=== PATIENT | male | born 1970 | race African-American/Black ===

== ENCOUNTER 2018-11-19 10:24 | Emergency (ER) | payer OTHER ==
[2018-11-19] MEDS ORDERED: TRAMADOL HCL 50 MG TAB ONE (13:04)
[2018-11-19] MEDS ORDERED: DIAZEPAM 5 MG TABLET ONE (13:04)
[2018-11-19] MEDS ORDERED: FENTANYL CITR 100 MCG/2 ML ONE (14:20)
--- NOTE | 2018-11-19 14:54 | EDPHYS ---
Physician Documentation [facility] Name: Ashok Galan Jr Age: 48 yrs Sex: Male : 1970 Arrival Date: 11/19/2018 Time: 10:29 Bed Treatment Private MD: Arben Ro H ED Physician Tino Aguila HPI: 11/19 14:15 This 48 yrs old Black Male presents to ER via EMS with complaints of Hip Pain, Leg Pain.snw 14:15 The patient or guardian reports decreased range of motion, pain. that occurred at home, snw sustained from unknown reason, The patient is able to ambulate with assistance. The patient is able to bear partial body weight. The patient's discomfort radiates to the right leg, right hip. The complaints affect the right hip, lateral aspect of right thigh and right quadriceps. Onset: The symptoms/episode began/occurred suddenly, 3 day(s) ago, and became persistent. Associated signs and symptoms: Loss of consciousness: the patient experienced no loss of consciousness. Severity of symptoms: At their worst the symptoms were moderate, severe. The patient has not experienced similar symptoms in the past. It is unknown whether or not the patient has recently seen a physician. taking flexeril without relief. Historical: - Allergies: 11:45 No Known Allergies; iw - Home Meds: 10:33 Omeprazole Oral [Active]; Lisinopril Oral [Active]; Cyclobenzaprine Oral [Active]; tw2 - PMHx: 10:33 GI ulcers; Hypertension; tw2 - PSHx: 10:33 colonoscopy; tw2 - Immunization history:: Adult Immunizations unknown. - Social history:: Smoking status: Patient uses tobacco products, smokes one-half pack cigarettes per day. - Ebola Screening: : Patient denies travel to an Ebola-affected area in the 21 days before illness onset. ROS: 14:14 Constitutional: Negative for fever, chills, and weight loss, Eyes: Negative for injury, snw pain, redness, and discharge, ENT: Negative for injury, pain, and discharge, Neck: Negative for injury, pain, and swelling, Cardiovascular: Negative for chest pain, palpitations, and edema, Respiratory: Negative for shortness of breath, cough, wheezing, and pleuritic chest pain, Abdomen/GI: Negative for abdominal pain, nausea, vomiting, diarrhea, and constipation, : Negative for injury, bleeding, discharge, and swelling, MS/Extremity: Negative for injury and deformity, Skin: Negative for injury, rash, and discoloration, Neuro: Negative for headache, weakness, numbness, tingling, and seizure. 14:14 Back: Positive for decreased range of motion, pain at rest, pain with movement, radiated pain, of the low back area, right hip, and right thigh. Exam: 13:03 Constitutional: This is a well developed, well nourished patient who is awake, alert, snw and in no acute distress. Head/Face: Normocephalic, atraumatic. Eyes: Pupils equal round and reactive to light, extra-ocular motions intact. Lids and lashes normal. Conjunctiva and sclera are non-icteric and not injected. Cornea within normal limits. Periorbital areas with no swelling, redness, or edema. ENT: Nares patent. No nasal discharge, no septal abnormalities noted. Tympanic membranes are normal and external auditory canals are clear. Oropharynx with no redness, swelling, or masses, exudates, or evidence of obstruction, uvula midline. Mucous membranes moist. Neck: Trachea midline, no thyromegaly or masses palpated, and no cervical lymphadenopathy. Supple, full range of motion without nuchal rigidity, or vertebral point tenderness. No Meningismus. Chest/axilla: Normal chest wall appearance and motion. Nontender with no deformity. No lesions are appreciated. Cardiovascular: Regular rate and rhythm with a normal S1 and S2. No gallops, murmurs, or rubs. Normal PMI, no JVD. No pulse deficits. Respiratory: Lungs have equal breath sounds bilaterally, clear to auscultation and percussion. No rales, rhonchi or wheezes noted. No increased work of breathing, no retractions or nasal flaring. Abdomen/GI: Soft, non-tender, with normal bowel sounds. No distension or tympany. No guarding or rebound. No evidence of tenderness throughout. Skin: Warm, dry with normal turgor. Normal color with no rashes, no lesions, and no evidence of cellulitis. MS/ Extremity: Pulses equal, no cyanosis. Neurovascular intact. Full, normal range of motion. Neuro: Awake and alert, GCS 15, oriented to person, place, time, and situation. Cranial nerves II-XII grossly intact. Motor strength 5/5 in all extremities. Sensory grossly intact. Cerebellar exam normal. Normal gait. Psych: Awake, alert, with orientation to person, place and time. Behavior, mood, and affect are within normal limits. 13:03 Back: pain, that is moderate, of the low back area, ROM is painful, CVA tenderness, is absent, muscle spasm, is appreciated in the right anterior thigh, holding himself up off right hip/back. Vital Signs: 10:36 BP 160 / 76; Pulse 60; Resp 17; Temp 97.8(O); Pulse Ox 95% on R/A; Weight 136.08 kg tw2 (R); Height 6 ft. 8 in. (203.20 cm); Pain 04/21; 10:36 Body Mass Index 32.96 (136.08 kg, 203.20 cm) tw2 10:36 "20, i can hardly sit up but i can stand on it" tw2 MDM: 12:23 Patient medically screened. snw 14:56 Data reviewed: vital signs, nurses notes. Data interpreted: Pulse oximetry: on room air snw is 95 %. Interpretation: acceptable. Counseling: I had a detailed discussion with the patient and/or guardian regarding: the historical points, exam findings, and any diagnostic results supporting the discharge/admit diagnosis, the presence of at least one elevated blood pressure reading (>120/80) during this emergency department visit, radiology results, the need for outpatient follow up, to return to the emergency department if symptoms worsen or persist or if there are any questions or concerns that arise at home, smoking cessation. Special discussion: Based on the patient's Hx, exam, and Dx evaluation, there is no indication for emergent surgery or inpatient Tx. It is understood by the patient/guardian that if the Sx's persist or worsen they need to return immediately for re-evaluation. I have referred the patient to see his PCP for further evaluation of high blood pressure. Based on the history and exam findings, there is no indication for further emergent testing or inpatient evaluation. I discussed with the patient/guardian the need to see the primary care provider for further evaluation of the symptoms. 11/19 12:30 Order name: Lumbar Spine (3 Views) XRAY; Complete Time: 15:03 snw 11/19 14:34 Order name: Urine Dipstick-Ancillary (obtain specimen); Complete Time: 15:11 snw Administered Medications: 12:53 Drug: traMADol 50 mg Route: PO; iw 12:53 Drug: Valium 5 mg Route: PO; iw 14:11 Drug: fentaNYL (PF) 50 mcg Route: IM; Site: right deltoid; iw Disposition: 11/19/18 14:53 Discharged to Home. Impression: Radiculopathy, lumbar region, Low back pain, Constipation. - Condition is Stable. - Discharge Instructions: Abdominal Pain, Adult, Back Pain, Adult, Lumbosacral Radiculopathy, Musculoskeletal Pain, Steps to Quit Smoking, Back Injury Prevention, [id number], Back Exercises, Dfhl-[id number], Cryotherapy, Rehydration, Adult, Heat Therapy. - Prescriptions for Tylenol- Codeine #3 300-30 mg Oral Tablet - take 2 tablet by ORAL route every 6 hours As needed; 30 tablet. orphenadrine citrate 100 mg Oral Tablet Sustained Release - take 1 tablet by ORAL route 2 times per day As needed; 20 tablet. Miralax 17 gram/dose Oral - take 1 packet by ORAL route once daily dilute powder in 8 ounces of water or juice; 1 box. - Work release form, Medication Reconciliation Form, Thank You Letter, Antibiotic Education, Prescription Opioid Use, Family Work Release form. - Follow up: Arben Ro DO; When: 2 - 3 days; Reason: Recheck today's complaints, Continuance of care, Re-evaluation by your physician. Follow up: Emergency Department; When: As needed; Reason: Worsening of condition. - Notes: If abdominal pain, fever, or worsening symptoms, please return to ED immediately Addendum: 11/20/2018 19:28 Co-signature as Attending Physician, Tino Aguila MD I agree with the assessment and k dr plan of care. Signatures: Dispatcher [employer] EDMS Tino Aguila MD MD [facility] Gabby Meredith, LUMBER HACKER-C LUMBER HACKER-Csnw Ketty Waite RN RN iw Cindy Guerra RN RN tw2 Corrections: (The following items were deleted from the chart) 11/19 16:04 14:53 11/19/2018 14:53 Discharged to Home. Impression: Radiculopathy, lumbar region; iw Low back pain; Constipation. Condition is Stable. Forms are Medication Reconciliation Form, Thank You Letter, Antibiotic Education, Prescription Opioid Use. Follow up: Arben Ro; When: 2 - 3 days; Reason: Recheck today's complaints, Continuance of care, Re-evaluation by your physician. Follow up: Emergency Department; When: As needed; Reason: Worsening of condition. snw
--- NOTE | 2018-11-19 14:54 | ER ---
Nurse's Notes [facility] Name: Ashok Galan Jr Age: 48 yrs Sex: Male : 1970 Arrival Date: 11/19/2018 Time: 10:29 Bed Treatment Private MD: Arben Ro H Diagnosis: Radiculopathy, lumbar region;Low back pain;Constipation Presentation: 11/19 10:30 Presenting complaint: EMS states: pt c/o RIGHT hip pain that radiates to RIGHT knee, tw2 onset was Thursday, states it just has gotten worse,c/o pain 01/05, vs stable, 167/76, hx; htn, stomach ulcers. Transition of care: patient was not received from another setting of care. Onset of symptoms was November 19, 2018. Risk Assessment: Do you want to hurt yourself or someone else? Patient reports no desire to harm self or others. Initial Sepsis Screen: Does the patient meet any 2 criteria? No. Patient's initial sepsis screen is negative. Does the patient have a suspected source of infection? No. Patient's initial sepsis screen is negative. Care prior to arrival: None. 10:30 Method Of Arrival: EMS: [facility] tw2 10:30 Acuity: JENNIFER 4 tw2 Triage Assessment: 10:34 General: Appears in no apparent distress. unkempt, Behavior is calm, cooperative, tw2 appropriate for age. Pain: Complains of pain in Right hip or Right lower back. Musculoskeletal: Circulation, motion, and sensation intact. Range of motion: intact in all extremities, "i can walk a little bit". Historical: - Allergies: 11:45 No Known Allergies; iw - Home Meds: 10:33 Omeprazole Oral [Active]; Lisinopril Oral [Active]; Cyclobenzaprine Oral [Active]; tw2 - PMHx: 10:33 GI ulcers; Hypertension; tw2 - PSHx: 10:33 colonoscopy; tw2 - Immunization history:: Adult Immunizations unknown. - Social history:: Smoking status: Patient uses tobacco products, smokes one-half pack cigarettes per day. - Ebola Screening: : Patient denies travel to an Ebola-affected area in the 21 days before illness onset. Screenin:38 Abuse screen: Denies threats or abuse. Nutritional screening: No deficits noted. tw2 Tuberculosis screening: No symptoms or risk factors identified. Fall Risk None identified. Assessment: 11:44 General: Appears in no apparent distress. Behavior is calm, cooperative. Pain: iw Complains of pain in right lower back Pain radiates to right leg. Neuro: Level of Consciousness is awake, alert, obeys commands, Moves all extremities. Cardiovascular: Patient's skin is warm and dry. Respiratory: Respiratory effort is even, unlabored, Respiratory pattern is regular. Derm: Skin is intact, is healthy with good turgor. Musculoskeletal: Range of motion: intact in all extremities, Reports pain in right lower back. Vital Signs: 10:36 BP 160 / 76; Pulse 60; Resp 17; Temp 97.8(O); Pulse Ox 95% on R/A; Weight 136.08 kg tw2 (R); Height 6 ft. 8 in. (203.20 cm); Pain 10/10; 10:36 Body Mass Index 32.96 (136.08 kg, 203.20 cm) tw2 10:36 "20, i can hardly sit up but i can stand on it" tw2 ED Course: 10:29 Patient arrived in ED. mr 10:29 Arben Ro DO is Private Physician. mr 10:31 Triage completed. tw2 10:31 Arm band placed on. tw2 11:37 Ketty Waite, RN is Primary Nurse. iw 11:38 Bed in low position. Call light in reach. Pulse ox on. NIBP on. tw2 12:23 Gabby Meredith [facility]-C [facility]. snw 12:23 Tino Aguila MD is Attending Physician. snw 14:01 Radiology exam delayed due to PT NEEDING MORE PAIN MEDICATION BEFORE XRAYS AT 14:00. mh1 14:41 X-ray completed. Patient tolerated procedure poorly. Patient moved back from radiology. mh1 14:45 Lumbar Spine (3 Views) XRAY In Process Unspecified. EDMS 14:52 Arben Ro DO is Referral Physician. snw 16:03 No provider procedures requiring assistance completed. Patient did not have IV access iw during this emergency room visit. Administered Medications: 12:53 Drug: traMADol 50 mg Route: PO; iw 12:53 Drug: Valium 5 mg Route: PO; iw 14:11 Drug: fentaNYL (PF) 50 mcg Route: IM; Site: right deltoid; iw Outcome: 14:53 Discharge ordered by MD. saba 16:03 Discharged to home via wheelchair, with family. iw 16:03 Condition: good 16:03 Discharge instructions given to patient, family, Instructed on discharge instructions, follow up and referral plans. medication usage, Demonstrated understanding of instructions, follow-up care, medications, Prescriptions given X 2. 16:04 Patient left the ED. iw Signatures: Dispatcher [employer] EDMS Gabby Meredith, HOT BILLET SHEAR OPERATOR-C HOT BILLET SHEAR OPERATOR-Csnw AdamsRosalva mr HeckSharonda 1 Ketty Waite, RN RN iw Cindy Guerra RN RN tw2
--- NOTE | 2018-11-19 15:02 | RAD REPORT ---
EXAM DESCRIPTION: RAD - Lumbar Spine 3 Views - 11/19/2018 2:45 pm CLINICAL HISTORY: Back pain, right lower extremity radiculopathy COMPARISON: None. FINDINGS: A three-view lumbar spine examination was performed. Lumbar bodies are normal in height. N o AP alignment abnormality. The left lateral tilting of the lumbar spine is believed to be a position ing artifact. Due to pain symptoms, patient had difficulty remaining still for the examination. No fr acture or acute bony process seen. No disc space narrowing. No pars defects identified. IMPRESSION: Lumbar spine examination shows no significant or suspicious finding.
== END 2018-11-19 16:04 | disposition home or self-care (01) ==
LOC: ER 10:24
DX: M54.16 Radiculopathy, lumbar region (principal); I10 Essential (primary) hypertension; F17.210 Nicotine dependence, cigarettes, uncomplicated
CPT/HCPCS: 72100; 96372; 99284; J3010

== ENCOUNTER 2019-08-22 03:07 | Emergency (ER) | payer OTHER ==
[2019-08-22] MEDS ORDERED: ONDANSETRON 4 MG/2 ML VIAL ONE (03:29)
[2019-08-22] MEDS ORDERED: NA CHLORIDE 0.9% 1,000 ML ONE (03:29)
[2019-08-22 04:04] LABS: Absolute Lymphocytes (CBC) 4.1 K/uL (0.7-4.9); Basophils % 0.6 % (0-1.3); Hematocrit 38.1 % (39.6-49.0); Lymphocytes % 46.2 % (15.3-44.8); MPV 9.6 fL (7.6-11.3); RBC Red Blood Cell Count 6.51 M/uL (4.33-5.43)
[2019-08-22 04:06] LABS: Protime INR 0.96
[2019-08-22 04:19] LABS: Albumin 3.4 g/dL (3.4-5.0); Bilirubin Direct 0.1 mg/dL (0-0.2); Bilirubin Total 0.4 mg/dL (0.2-1.0); Potassium 3.8 mmol/L (3.5-5.1); Protein, Total 6.8 g/dL (6.4-8.2)
--- NOTE | 2019-08-22 04:45 | ER ---
Nurse's Notes [facility] Name: Ashok Glaan Jr Age: 49 yrs Sex: Male : 1970 Arrival Date: 08/22/2019 Time: 03:08 Bed 5 Private MD: Diagnosis: Blister (nonthermal) of oral cavity;Abrasion of oral cavity Presentation: 08/22 03:15 Presenting complaint: EMS states: they were called out for report of pt waking up bb approx 0230 with dried blood in his mouth pt denies any other symptoms. Transition of care: patient was not received from another setting of care. Onset of symptoms was August 22, 2019. Risk Assessment: Do you want to hurt yourself or someone else? Patient reports no desire to harm self or others. Initial Sepsis Screen: Does the patient meet any 2 criteria? No. Patient's initial sepsis screen is negative. Does the patient have a suspected source of infection? No. Patient's initial sepsis screen is negative. Care prior to arrival: None. 03:15 Method Of Arrival: EMS: [facility] bb 03:15 Acuity: JENNIFER 4 bb Historical: - Allergies: 03:18 No Known Allergies; bb - Home Meds: 03:18 lisinopril Oral [Active]; Omeprazole Oral [Active]; bb - PMHx: 03:18 GI ulcers; Hypertension; bb - Immunization history:: Adult Immunizations up to date, Flu vaccine is not up to date. - Coronavirus screen:: The patient has NOT traveled to [place], [place], or [place] in the past 14 days. Proceed with normal triage process as indicated. - Social history:: Smoking status: Patient reports the use of cigarette tobacco products, smokes one-half pack cigarettes per day. - Ebola Screening: : No symptoms or risks identified at this time. Screenin:11 Abuse screen: Denies threats or abuse. Nutritional screening: No deficits noted. jd3 Tuberculosis screening: No symptoms or risk factors identified. Fall Risk Ambulatory Aid- None/Bed Rest/Nurse Assist (0 pts). Gait- Normal/Bed Rest/Wheelchair (0 pts) Mental Status- Oriented to own ability (0 pts). Total Duckworth Fall Scale indicates No Risk (0-24 pts). Assessment: 03:09 General: Appears in no apparent distress. uncomfortable, Behavior is calm, cooperative, jd3 appropriate for age. Pain: Denies pain. Neuro: Level of Consciousness is awake, alert, obeys commands, Oriented to person, place, time, situation. Cardiovascular: Denies chest pain, Capillary refill < 3 seconds Patient's skin is warm and dry. Respiratory: Airway is patent Respiratory effort is even, unlabored, Respiratory pattern is regular, symmetrical, Denies cough, shortness of breath. GI: Abdomen is round non-distended, Bowel sounds present X 4 quads. Abd is soft and non tender X 4 quads. Reports nausea, blood in mouth upon waking up. Patient currently denies abdominal pain, diarrhea, vomiting. : No signs and/or symptoms were reported regarding the genitourinary system. EENT: No signs and/or symptoms were reported regarding the EENT system. Derm: Skin is intact, Skin is dry, Skin is normal, Skin temperature is warm. Musculoskeletal: Circulation, motion, and sensation intact. Range of motion: intact in all extremities. 04:34 Reassessment: Patient appears in no apparent distress at this time. Patient and/or jd3 family updated on plan of care and expected duration. Pain level reassessed. Patient is alert, oriented x 3, equal unlabored respirations, skin warm/dry/pink. Patient denies pain at this time. 05:02 Reassessment: Patient appears in no apparent distress at this time. Patient and/or jd3 family updated on plan of care and expected duration. Pain level reassessed. Patient is alert, oriented x 3, equal unlabored respirations, skin warm/dry/pink. pt reported understanding of discharge instructions, even and steady gait upon discharge. Patient denies pain at this time. Vital Signs: 03:18 BP 146 / 89; Pulse 92; Resp 14 S; Temp 98.6(O); Pulse Ox 96% on R/A; Weight 131.54 kg bb (R); Height 6 ft. 8 in. (203.20 cm) (R); Pain 0/10; 04:33 BP 132 / 88; Pulse 87; Resp 18 S; Pulse Ox 100% on R/A; jd3 03:18 Body Mass Index 31.86 (131.54 kg, 203.20 cm) bb ED Course: 03:08 Patient arrived in ED. ds1 03:09 Rogers, Jonathan, RN is Primary Nurse. jd3 03:11 Patient has correct armband on for positive identification. Placed in gown. Bed in low jd3 position. Call light in reach. Side rails up X2. 03:11 Arm band placed on. jd3 03:14 El Monk MD is Attending Physician. tw4 03:17 Triage completed. bb 03:36 Inserted saline lock: 20 gauge in right antecubital area, using aseptic technique. jd3 Blood collected. placed by [facility]. 05:02 No provider procedures requiring assistance completed. IV discontinued, intact, jd3 bleeding controlled, No redness/swelling at site. Pressure dressing applied. Administered Medications: 03:36 Drug: NS 0.9% 1000 ml Route: IV; Rate: 1 bolus; Site: right antecubital; jd3 05:04 Follow up: Response: No adverse reaction; IV Status: Completed infusion; IV Intake: jd3 1000ml 03:36 Drug: Zofran 4 mg Route: IVP; Site: right antecubital; jd3 05:04 Follow up: Response: No adverse reaction jd3 Intake: 05:04 IV: 1000ml; Total: 1000ml. jd3 Outcome: 04:45 Discharge ordered by . tw4 05:02 Discharged to home ambulatory, with family. jd3 05:02 Condition: stable 05:02 Discharge instructions given to patient, Instructed on discharge instructions, follow up and referral plans. Demonstrated understanding of instructions, follow-up care. 05:05 Patient left the ED. jd3 Signatures: Ciara Owen ds1 Ethel An RN RN bb Davies, Jonathon, RN RN jd3 Wadley, Terrence, MD MD tw4 Corrections: (The following items were deleted from the chart) 05:05 05:02 Reassessment: Patient appears in no apparent distress at this time. Patient jd3 and/or family updated on plan of care and expected duration. Pain level reassessed. Patient is alert, oriented x 3, equal unlabored respirations, skin warm/dry/pink. Patient denies pain at this time. jd3
--- NOTE | 2019-08-22 04:45 | EDPHYS ---
Physician Documentation [facility] Name: Ashok Galan Jr Age: 49 yrs Sex: Male : 1970 Arrival Date: 08/22/2019 Time: 03:08 Bed 5 Private MD: ED Physician El Monk HPI: 08/22 05:52 This 49 yrs old Black Male presents to ER via EMS with complaints of Blood in Vomit. tw4 05:52 This 49 yrs old Black Male presents to ER via EMS with complaints of BLLOD BLISTER IN tw4 MOUTH BLEEDING. 05:52 The patient presents with bleeding. The problem is located in the left buccal mucosa. tw4 Onset: The symptoms/episode began/occurred just prior to arrival. Duration: The symptoms are intermittent, with no pattern. Modifying factors: The symptoms are alleviated by nothing, the symptoms are aggravated by nothing. Associated signs and symptoms: The patient has no apparent associated signs or symptoms. Severity of symptoms: At their worst the symptoms were moderate, in the emergency department the symptoms are unchanged. The patient has not experienced similar symptoms in the past. Historical: - Allergies: 03:18 No Known Allergies; bb - Home Meds: 03:18 lisinopril Oral [Active]; Omeprazole Oral [Active]; bb - PMHx: 03:18 GI ulcers; Hypertension; bb - Immunization history:: Adult Immunizations up to date, Flu vaccine is not up to date. - Coronavirus screen:: The patient has NOT traveled to [place], [place], or [place] in the past 14 days. Proceed with normal triage process as indicated. - Social history:: Smoking status: Patient reports the use of cigarette tobacco products, smokes one-half pack cigarettes per day. - Ebola Screening: : No symptoms or risks identified at this time. ROS: 05:52 Constitutional: Negative for fever, chills, and weight loss, Eyes: Negative for injury, tw4 pain, redness, and discharge, Cardiovascular: Negative for chest pain, palpitations, and edema, Respiratory: Negative for shortness of breath, cough, wheezing, and pleuritic chest pain, Abdomen/GI: Negative for abdominal pain, nausea, vomiting, diarrhea, and constipation, Back: Negative for injury and pain, MS/Extremity: Negative for injury and deformity, Skin: Negative for injury, rash, and discoloration, Neuro: Negative for headache, weakness, numbness, tingling, and seizure. 05:52 ENT: Positive for BLEEDING FROM ORAL MUCOSA. Exam: 05:52 Constitutional: This is a well developed, well nourished patient who is awake, alert, tw4 and in no acute distress. Head/Face: Normocephalic, atraumatic. Eyes: Pupils equal round and reactive to light, extra-ocular motions intact. Lids and lashes normal. Conjunctiva and sclera are non-icteric and not injected. Cornea within normal limits. Periorbital areas with no swelling, redness, or edema. 05:52 Cardiovascular: Regular rate and rhythm with a normal S1 and S2. No gallops, murmurs, or rubs. Normal PMI, no JVD. No pulse deficits. Respiratory: Lungs have equal breath sounds bilaterally, clear to auscultation and percussion. No rales, rhonchi or wheezes noted. No increased work of breathing, no retractions or nasal flaring. Abdomen/GI: Soft, non-tender, with normal bowel sounds. No distension or tympany. No guarding or rebound. No evidence of tenderness throughout. Back: No spinal tenderness. No costovertebral tenderness. Full range of motion. MS/ Extremity: Pulses equal, no cyanosis. Neurovascular intact. Full, normal range of motion. Neuro: Awake and alert, GCS 15, oriented to person, place, time, and situation. Cranial nerves II-XII grossly intact. Motor strength 5/5 in all extremities. Sensory grossly intact. Cerebellar exam normal. Normal gait. 05:52 ENT: Mouth: Oral mucosa: on the left buccal mucosa, ABRASION NOT ACTIVELY BLEEDING. Vital Signs: 03:18 BP 146 / 89; Pulse 92; Resp 14 S; Temp 98.6(O); Pulse Ox 96% on R/A; Weight 131.54 kg bb (R); Height 6 ft. 8 in. (203.20 cm) (R); Pain 0/10; 04:33 BP 132 / 88; Pulse 87; Resp 18 S; Pulse Ox 100% on R/A; jd3 03:18 Body Mass Index 31.86 (131.54 kg, 203.20 cm) bb MDM: 03:14 Patient medically screened. tw4 05:52 Differential diagnosis: dental caries, gingivitis. Data reviewed: vital signs, nurses tw4 notes. Data reviewed: lab test result(s), CBC, hepatic panel. Counseling: I had a detailed discussion with the patient and/or guardian regarding: the historical points, exam findings, and any diagnostic results supporting the discharge/admit diagnosis, lab results. Special discussion: I discussed with the patient/guardian in detail that at this point there is no indication for admission to the hospital. It is understood, however, that if the symptoms persist or worsen the patient needs to return immediately for re-evaluation. 08/22 03:16 Order name: Basic Metabolic Panel; Complete Time: 04:47 08/22 04:48 Interpretation: Normal except: CRE 1.36; GLUC 107; CL 110; GFR 68. 08/22 03:16 Order name: CBC with Diff 08/22 04:48 Interpretation: Normal except: RBC 6.51; HGB 11.8; HCT 38.1; MCV 58.5; MCH 18.1; MCHC tw4 31.0; RDW 16.4; LYM% 46.2. 08/22 03:16 Order name: Creatinine for Radiology; Complete Time: 04:47 08/22 04:47 Interpretation: Normal except: CRE 1.35. 08/22 03:16 Order name: Hepatic Function; Complete Time: 04:47 08/22 04:47 Interpretation: Normal except: A/G 1.0. 08/22 03:16 Order name: Lipase; Complete Time: 04:47 08/22 04:47 Interpretation: Within normal limits: LIP 75. 08/22 03:16 Order name: Type And Screen; Complete Time: 04:47 08/22 03:16 Order name: IV Saline Lock; Complete Time: 03:35 08/22 03:16 Order name: Labs collected and sent; Complete Time: 03:35 08/22 03:16 Order name: PT-INR; Complete Time: 04:47 08/22 04:48 Interpretation: Within normal limits: PT 11.3. 08/22 03:16 Order name: Ptt, Activated; Complete Time: 04:47 08/22 04:48 Interpretation: Within normal limits: PTT 28.2. 08/22 04:57 Order name: CBC Smear Scan EDMS Administered Medications: 03:36 Drug: NS 0.9% 1000 ml Route: IV; Rate: 1 bolus; Site: right antecubital; jd3 05:04 Follow up: Response: No adverse reaction; IV Status: Completed infusion; IV Intake: jd3 1000ml 03:36 Drug: Zofran 4 mg Route: IVP; Site: right antecubital; jd3 05:04 Follow up: Response: No adverse reaction jd3 Disposition: 08/22/19 04:45 Discharged to Home. Impression: Blister (nonthermal) of oral cavity, Abrasion of oral cavity. - Condition is Stable. - Discharge Instructions: Blisters, Adult, Abrasion, [id number]. - Work release form, Medication Reconciliation Form, Thank You Letter, Antibiotic Education, Prescription Opioid Use form. - Follow up: Private Physician; When: Upon discharge from the Emergency Department; Reason: Recheck today's complaints, Continuance of care, Re-evaluation by your physician. - Problem is new. - Symptoms have improved. Signatures: Dispatcher [employer] EDMS Ethel An, RN RN Jonathan Barrett RN RN El Johnson MD MD tw4 Corrections: (The following items were deleted from the chart) 04:48 04:47 Normal except: CRE 1.36; GLUC 107; CL 110. tw4 4 05:05 04:45 08/22/2019 04:45 Discharged to Home. Impression: Blister (nonthermal) of oral jd3 cavity; Abrasion of oral cavity. Condition is Stable. Forms are Medication Reconciliation Form, Thank You Letter, Antibiotic Education, Prescription Opioid Use. Follow up: Private Physician; When: Upon discharge from the Emergency Department; Reason: Recheck today's complaints, Continuance of care, Re-evaluation by your physician. Problem is new. Symptoms have improved. tw4
[2019-08-22 04:57] LABS: Blood Morphology Comment NOTED (NOT SEEN); Hypochromasia 2+; Platelet Estimate ADEQ; Target Cells 1+; Urine White Blood Cell Casts OK
[2019-08-22 05:14] VITALS: TEMP 98.6
[2019-08-22 05:15] VITALS: BP 132/88; O2SAT 100
== END 2019-08-22 05:05 | disposition home or self-care (01) ==
LOC: ER 03:07
DX: S00.522A Blister (nonthermal) of oral cavity, initial encounter (principal); I10 Essential (primary) hypertension; Z72.0 Tobacco use
CPT/HCPCS: 96361; 85025; 80048; 36415; 86900; 86850; 85610; 86901; 80076; 85730; 83690; 96374; 99284; J7030; J2405

== ENCOUNTER 2020-12-13 02:17 | Emergency (ER) | payer OTHER ==
--- NOTE | 2020-12-13 02:44 | EDPHYS ---
Physician Documentation [facility] Name: Ashok Galan Jr Age: 50 yrs Sex: Male : 1970 Arrival Date: 12/13/2020 Time: 02:19 Bed 15 Private MD: ED Physician Louis Harrell HPI: 12/13 02:39 This 50 yrs old Black Male presents to ER via EMS with complaints of sinus infection. rn 02:39 The patient or guardian reports congestion, sinus pressure, periorbital swelling. rn Onset: The symptoms/episode began/occurred yesterday. Severity of symptoms: At their worst the symptoms were mild, in the emergency department the symptoms are unchanged. Modifying factors: The symptoms are alleviated by nothing, the symptoms are aggravated by nothing. Associated signs and symptoms: Pertinent positives: rhinorrhea, Pertinent negatives: fever. The patient has experienced similar episodes in the past. The patient has not recently seen a physician. Reports woke up today with swollen eyes, got scared and called 911. No rash or itching. Has been having sinus pressure, congestion lately. Also with seasonal allergies but not taking any medication for it. NO trauma. No visual disturbances or changes. No sob/cough. No fever. . Historical: - Allergies: 02:22 No Known Allergies; [facility] - Home Meds: 02:22 lisinopril Oral [Active]; Omeprazole Oral [Active]; [facility] - PMHx: 02:22 GI ulcers; Hypertension; [facility] - PSHx: 02:22 None; [facility] - Immunization history:: Adult Immunizations up to date. - Social history:: Smoking status: Reported history of juuling and/or vaping. - Family history:: not pertinent. - Hospitalizations: : No recent hospitalization is reported. ROS: 02:39 Constitutional: Negative for fever, chills, and weight loss, Eyes: + periorbital rn swelling/edema ENT: + congestion Neck: Negative for injury, pain, and swelling, Cardiovascular: Negative for chest pain, palpitations, and edema, Respiratory: Negative for shortness of breath, cough, wheezing, and pleuritic chest pain, Abdomen/GI: Negative for abdominal pain, nausea, vomiting, diarrhea, and constipation, Back: Negative for injury and pain, MS/Extremity: Negative for injury and deformity, Skin: Negative for injury, rash, and discoloration, Neuro: Negative for weakness, numbness, tingling, and seizure. Exam: 02:39 Constitutional: This is a well developed, well nourished patient who is awake, alert, rn and in no acute distress. Head/Face: Normocephalic, atraumatic. Eyes: Pupils equal round and reactive to light, extra-ocular motions intact. Lids and lashes normal. Conjunctiva and sclera are non-icteric and not injected. Cornea within normal limits. + mild bilateral periorbital edema without discoloration ENT: MMM, no stridor, no intraoral swelling Neck: Trachea midline, no masses palpated, and no cervical lymphadenopathy. Supple, full range of motion without nuchal rigidity, or vertebral point tenderness. No Meningismus. Cardiovascular: Regular rate and rhythm. No pulse deficits. Respiratory: No increased work of breathing, no retractions or nasal flaring. Skin: Warm, dry with normal turgor. Normal color with no rashes, no lesions, and no evidence of cellulitis. MS/ Extremity: Pulses equal, no cyanosis. Neurovascular intact. Full, normal range of motion. Equal circumference. Neuro: Awake and alert, GCS 15, oriented to person, place, time, and situation. Cranial nerves II-XII grossly intact. Motor strength 5/5 in all extremities. Sensory grossly intact. Cerebellar exam normal. Normal gait. Vital Signs: 02:19 BP 129 / 90; Pulse 99; Resp 16; Temp 98.4; Pulse Ox 97% on R/A; Weight 131.54 kg; [facility] Height 6 ft. 8 in. (203.20 cm); 02:19 Body Mass Index 31.86 (131.54 kg, 203.20 cm) [facility] MDM: 02:19 Patient medically screened. rn 02:39 Differential Diagnosis: Upper Respiratory Infection Sinusitis Viral Syndrome. Data rn reviewed: vital signs, nurses notes, and as a result, I will discharge patient. Counseling: I had a detailed discussion with the patient and/or guardian regarding: the historical points, exam findings, and any diagnostic results supporting the discharge/admit diagnosis, the need for outpatient follow up, to return to the emergency department if symptoms worsen or persist or if there are any questions or concerns that arise at home. Special discussion: I discussed with the patient/guardian in detail that at this point there is no indication for admission to the hospital. It is understood, however, that if the symptoms persist or worsen the patient needs to return immediately for re-evaluation. Administered Medications: 02:40 Drug: Zithromax (azithromycin) 500 mg Route: PO; jm8 02:56 Follow up: Response: No adverse reaction [facility] 02:40 Drug: Decadron (dexamethasone) 10 mg Route: IM; Site: right deltoid; jm8 02:56 Follow up: Response: No adverse reaction 8 Disposition: 12/13/20 02:44 Discharged to Home. Impression: Acute sinusitis. - Condition is Stable. - Discharge Instructions: Sinusitis, Adult. - Prescriptions for Zithromax Z- Mathew 250 mg Oral Tablet - take 1 tablet by ORAL route as directed for 5 days Day 1 - take two (2) tablets one time. Day 2, 3, 4 , 5 take one (1) tablet once daily.; 6 tablet. Medrol (Mathew) 4 mg Oral Tablets, Dose Pack - take 1 tablet by ORAL route as directed - follow package instructions; 1 packet. - Medication Reconciliation Form, Thank You Letter, Antibiotic Education, Prescription Opioid Use, Work release form form. - Follow up: Private Physician; When: As needed; Reason: Recheck today's complaints, Re-evaluation by your physician. - Problem is new. - Symptoms have improved. Signatures: Louis Harrell MD MD rn Malcaba, Joseph, RN RN jm8 Corrections: (The following items were deleted from the chart) 02:57 02:44 12/13/2020 02:44 Discharged to Home. Impression: Acute sinusitis. Condition is [facility] Stable. Forms are Medication Reconciliation Form, Thank You Letter, Antibiotic Education, Prescription Opioid Use. Follow up: Private Physician; When: As needed; Reason: Recheck today's complaints, Re-evaluation by your physician. Problem is new. Symptoms have improved. rn
--- NOTE | 2020-12-13 02:44 | ER ---
Nurse's Notes [facility] Name: Ashok Galan Jr Age: 50 yrs Sex: Male : 1970 Arrival Date: 12/13/2020 Time: 02:19 Bed 15 Private MD: Diagnosis: Acute sinusitis Presentation: 12/13 02:19 Chief complaint: EMS states: patient woke up this morning around 0130 with swollen eyes jm8 and difficulty breathing through his nose. Unknown allergen. Coronavirus screen: Client denies travel out of the [place] in the last 14 days. At this time, the client does not indicate any symptoms associated with coronavirus-19. Ebola Screen: Patient negative for fever greater than or equal to 101.5 degrees Fahrenheit, and additional compatible Ebola Virus Disease symptoms Patient denies exposure to infectious person. Patient denies travel to an Ebola-affected area in the 21 days before illness onset. Initial Sepsis Screen: Does the patient meet any 2 criteria? HR > 90 bpm. No. Patient's initial sepsis screen is negative. Does the patient have a suspected source of infection? No. Patient's initial sepsis screen is negative. Risk Assessment: Do you want to hurt yourself or someone else? Patient reports no desire to harm self or others. Onset of symptoms was December 13, 2020 at 01:30. 02:19 Method Of Arrival: EMS: [facility] 02:19 Acuity: JENNIFER 3 jm8 Historical: - Allergies: 02:22 No Known Allergies; jm8 - Home Meds: 02:22 lisinopril Oral [Active]; Omeprazole Oral [Active]; jm8 - PMHx: 02:22 GI ulcers; Hypertension; jm8 - PSHx: 02:22 None; jm8 - Immunization history:: Adult Immunizations up to date. - Social history:: Smoking status: Reported history of juuling and/or vaping. - Family history:: not pertinent. - Hospitalizations: : No recent hospitalization is reported. Screenin:24 Abuse screen: Denies threats or abuse. Denies injuries from another. Nutritional jm8 screening: No deficits noted. Tuberculosis screening: No symptoms or risk factors identified. Fall Risk None identified. Assessment: 02:23 General: Appears in no apparent distress. comfortable, Behavior is calm, cooperative, jm8 appropriate for age. Pain: Denies pain. Neuro: No deficits noted. Neuro: Level of Consciousness is awake, alert, obeys commands, Oriented to person, place, time. Cardiovascular: No deficits noted. Respiratory: No deficits noted. Reports congestion, swollen eyes, runny nose Airway is patent Trachea midline Respiratory effort is even, unlabored, Respiratory pattern is regular, symmetrical. GI: No deficits noted. No signs and/or symptoms were reported involving the gastrointestinal system. : No deficits noted. No signs and/or symptoms were reported regarding the genitourinary system. EENT: No deficits noted. No signs and/or symptoms were reported regarding the EENT system. Derm: No deficits noted. No signs and/or symptoms reported regarding the dermatologic system. Skin is intact, is healthy with good turgor, Skin is dry, Skin is pink, warm \T\ dry. Skin temperature is warm. Musculoskeletal: No deficits noted. No signs and/or symptoms reported regarding the musculoskeletal system. Vital Signs: 02:19 BP 129 / 90; Pulse 99; Resp 16; Temp 98.4; Pulse Ox 97% on R/A; Weight 131.54 kg; jm8 Height 6 ft. 8 in. (203.20 cm); 02:19 Body Mass Index 31.86 (131.54 kg, 203.20 cm) jm8 ED Course: 02:19 Patient arrived in ED. jm8 02:19 Louis Harrell MD is Attending Physician. rn 02:21 Triage completed. jm8 02:23 Arm band placed on right wrist. jm8 02:24 Patient has correct armband on for positive identification. Bed in low position. Call jm8 light in reach. Side rails up X2. 02:57 No provider procedures requiring assistance completed. Patient did not have IV access jm8 during this emergency room visit. Administered Medications: 02:40 Drug: Zithromax (azithromycin) 500 mg Route: PO; jm8 02:56 Follow up: Response: No adverse reaction jm8 02:40 Drug: Decadron (dexamethasone) 10 mg Route: IM; Site: right deltoid; jm8 02:56 Follow up: Response: No adverse reaction jm8 Outcome: 02:44 Discharge ordered by . rn 02:57 Discharged to home ambulatory. jm8 02:57 Condition: good 02:57 Discharge instructions given to patient, Instructed on discharge instructions, follow up and referral plans. medication usage, Demonstrated understanding of instructions, follow-up care, medications, Prescriptions given X 2. 02:57 Patient left the ED. jm8 Signatures: Louis Harrell MD MD rn Malcaba, Joseph, RN RN jm8
[2020-12-13] MEDS ORDERED: AZITHROMYCIN 250 MG TAB ONE (02:55)
[2020-12-13] MEDS ORDERED: dexAMETHasone 10 MG/ML VIAL ONE (02:55)
[2020-12-13 03:13] VITALS: BP 129/90; TEMP 98.4; O2SAT 97
== END 2020-12-13 02:57 | disposition home or self-care (01) ==
LOC: ER 02:17
DX: J01.90 Acute sinusitis, unspecified (principal); I10 Essential (primary) hypertension
CPT/HCPCS: 96372; 99283; J1100

== ENCOUNTER 2021-03-18 20:05 | Emergency (ER) | payer OTHER ==
--- OUTSIDE RECORDS SUMMARY | 2021-03-18 20:09 | XMS REPORT | Continuity of Care Document ---
:1970 Author Organization [facility] t Address [address] [place] [address] Care Team Providers Name Role Phone Arben Ro Primary Care Physician Ld [place] MD Attending Clinician Pob, Lab Main Attending Clinician Unavailable Payers Payer Name Policy Type Policy Number Effective Date Expiration Date S ource Problems This patient has no known problems. Allergies, Adverse Reactions, Alerts This patient has no known allergies or adverse reactions. Social History Social Habit Start Date Stop Date Quantity Comments Source Exposure to Not sure [facility] SARS-CoV-2 (event) Medica l Branch Sex Assigned At [birth year] [facility] 00:00:00 00:00:[address] [facility] Smoking Status Start Date Stop Date Source Unknown if ever smoked [facility] Medications This patient has no known medications. Procedures Procedure Date / Time Performing Clinician Source Performed US ABDOMEN COMPLETE 2021-03-14 22:06:48 Ld [place] [facility] PATIENT FINANCIAL 2021-03-14 21:19:44 [facility] NO SHOW OR MISSED 2021-03-14 21:19:23 Doctor Unassigned, [facility] APPOINTMENT POLICY [facility] ACKNOWLEDGEMENT NOTICE OF PRIVACY 2021-03-14 21:19:05 Doctor Unassigned, [facility] PRACTICES [facility] CONSENT/REFUSAL FOR 2021-03-14 21:18:46 Doctor Unassgerry, [facility] DIAGNOSIS AND TREATMENT [facility] ASSIGNMENT OF BENEFITS 2021-03-14 21:18:30 Doctor Unassigned, [facility] Encounters Start End Encounter Admission Attending Care Care Encounter Source Date/Time Date/Time Type Type Clinicians Facility Department ID 2021-03-14 2021-03-14 Hospital Ld [place] [facility] [id number] [facility] 16:29:44 23:59:00 [place]counter [place] [id number] ity [facility] [id number] [facility] Malcolm [id number] [facility] [address] Branch 2021-03-14 2021-03-14 Manager Hair [place], Yogesh Lab Main [facility] [id number] [facility] 16:29:08 16:44:08 Visit Ld [place] [id number] ity [place] [id number] [facility] Professio [phone] Al dical nal [address] Building Results Test Test Test Results Result Source Description Time Comments Comments US ABDOMEN 2021-03 Impression: Findings most University COMPLETE -03 compatible with hepatic o f [place] 00:23:4 steatosis, with a small focal Medical 9 regionof sparing adjacent to Branch the gallbladder fossa. RL: 460 Ordering physician: LD [place] History: Fatty (change of) liver, not elsewhere classified ?Liver lesionExternal orders Technique: Abdominal ultrasound Technical quality: Adequate Comparison: No prior imaging studies of the abdomen are available. Findings: The liver is of normal size and contour. Hepatic echoes are mildly anddiffusely increased. There is a focal region of subcapsularhypoechogenicity abutting the gallbladder fossa, measuring up toapproximately 1.9 cm. This has a wedge shaped configuration, best seen onlongitudinal images, particularly cine images. This is most compatible withan area of focal sparing. Portal venous flow is hepatopetal. No biliarydilatation is evident, with the common bile duct measuring 3 mm. Nogallstones are evident. There is no gallbladder wall thickening orpericholecystic fluid. A negative sonographic Cotton's sign is reported bythe technologist. Both kidneys are sonographically normal, with the rightkidney measuring 10.8 cm in length and the left kidney 11.6 cm. The spleenis normal in size, contour, and echogenicity. The pancreas is partiallyobscured by bowel gas. The visualized portions of the pancreas areunremarkable. [facility], Radiant Results Inft User - 03/14/2021 7:24 PM CDT Ordering physician: LD COLORADOHistory: Fatty (change of) liver, not elsewhere classified Liver lesionExternal orders Technique: Abdominal ultrasoundTechnical quality: AdequateComparison: No prior imaging studies of the abdomen are available.Findings: The liver is of normal size and contour. Hepatic echoes are mildly anddiffusely increased. There is a focal region of subcapsularhypoechogenicity abutting the gallbladder fossa, measuring up toapproximately 1.9 cm. This has a wedge shaped configuration, best seen onlongitudinal images, particularly cine images. This is most compatible withan area of focal sparing. Portal venous flow is hepatopetal. No biliarydilatation is evident, with the common bile duct measuring 3 mm. Nogallstones are evident. There is no gallbladder wall thickening orpericholecystic fluid. A negative sonographic Cotton's sign is reported bythe technologist. Both kidneys are sonographically normal, with the rightkidney measuring 10.8 cm in length and the left kidney 11.6 cm. The spleenis normal in size, contour, and echogenicity. The pancreas is partiallyobscured by bowel gas. The visualized portions of the pancreas areunremarkable.IMPRESSIONImpr ession:Findings most compatible with hepatic steatosis, with a small focal regionof sparing adjacent to the gallbladder fossa.RL: 460
[2021-03-18 23:10] LABS: Absolute Lymphocytes (CBC) 3.9 K/uL (0.7-4.9); Basophils % 0.5 % (0-1.3); Hematocrit 36.9 % (39.6-49.0); Lymphocytes % 39.5 % (15.3-44.8); MPV 8.9 fL (7.6-11.3); RBC Red Blood Cell Count 6.34 M/uL (4.33-5.43)
[2021-03-18 23:28] LABS: Protime INR 1.14
[2021-03-18 23:40] LABS: ALT/SGPT 28 U/L (12-78); AST/SGOT 19 U/L (15-37); Albumin 4.3 g/dL (3.4-5.0); Alkaline Phosphatase 54 U/L (45-117); BUN Blood Urea Nitrogen 7 mg/dL (7-18); Bicarbonate 28 mmol/L (21-32); Bilirubin Direct 0.2 mg/dL (0-0.2); Bilirubin Total 0.7 mg/dL (0.2-1.0); Glucose Level 102 mg/dL (74-106); Magnesium 2.4 mg/dL (1.8-2.4); NT PRO-BNP 125 pg/mL (<125); Potassium 3.1 mmol/L (3.5-5.1); Protein, Total 7.9 g/dL (6.4-8.2); Sodium Level 143 mmol/L (136-145); Troponin (Emerg Dept Use Only) < 0.02 ng/mL (0.0-0.045)
[2021-03-18 23:48] LABS: Urine Blood Negative (Negative); Urine Glucose Negative (Negative); Urine Protein Negative (Negative); Urine Specific Gravity 1.015 (1.005-1.030)
[2021-03-19 00:28] LABS: Anisocytosis 1+; Blood Morphology Comment NOTED (NOT SEEN); Hypochromasia 2+; Ovalocytes 1+; Platelet Estimate ADEQ; Target Cells 1+; Teardrop Cell 2+; White Blood Cell Scan OK (OK)
[2021-03-19] MEDS ORDERED: POTASSIUM 25 MEQ EFFERV TAB ONE (02:14)
[2021-03-19] MEDS ORDERED: LORazepam 2 MG/ML VIAL ONE (02:14)
--- NOTE | 2021-03-19 02:41 | ER ---
Nurse's Notes [facility] Name: Ashok Galan Jr Age: 50 yrs Sex: Male : 1970 Arrival Date: 03/18/2021 Time: 20:08 Bed 2 Private MD: Diagnosis: Anxiety disorder, unspecified;Hypokalemia Presentation: 03/18 22:41 Chief complaint: Patient states: patient presents to the ED c/o anxiety and "pins and ms4 needle" feeling all over his body and on the inside. patient states he also is worried he is a diabetic. Coronavirus screen: Vaccine status: Patient reports being unvaccinated. Client denies travel out of the [place] in the last 14 days. Ebola Screen: Patient negative for fever greater than or equal to 101.5 degrees Fahrenheit, and additional compatible Ebola Virus Disease symptoms Patient denies exposure to infectious person. Patient denies travel to an Ebola-affected area in the 21 days before illness onset. No symptoms or risks identified at this time. Initial Sepsis Screen: Does the patient meet any 2 criteria? No. Patient's initial sepsis screen is negative. Does the patient have a suspected source of infection? No. Patient's initial sepsis screen is negative. Risk Assessment: Do you want to hurt yourself or someone else? Patient reports no desire to harm self or others. Onset of symptoms was March 18, 2021. 22:41 Method Of Arrival: Ambulatory ms4 22:41 Acuity: JENNIFER 3 ms4 Triage Assessment: 22:43 General: Appears in no apparent distress. Behavior is calm, cooperative. Pain: Denies ms4 pain. Historical: - Allergies: 22:43 No Known Allergies; ms4 - PMHx: 22:43 GI ulcers; Hypertension; ms4 - Immunization history:: Adult Immunizations up to date, Client reports having NOT received the Covid vaccine. - Social history:: Smoking status: unknown. Screenin:00 Abuse screen: Denies threats or abuse. Nutritional screening: No deficits noted. jb4 Tuberculosis screening: No symptoms or risk factors identified. Fall Risk None identified. Assessment: 22:00 General: Appears in no apparent distress. uncomfortable, Behavior is calm, cooperative, jb4 appropriate for age. Pain: Denies pain. Neuro: Level of Consciousness is awake, alert, obeys commands, Oriented to person, place, time, situation. Cardiovascular: Patient's skin is warm and dry. Respiratory: Airway is patent Respiratory effort is even, unlabored, Respiratory pattern is regular, symmetrical. GI: No signs and/or symptoms were reported involving the gastrointestinal system. : No signs and/or symptoms were reported regarding the genitourinary system. EENT: No signs and/or symptoms were reported regarding the EENT system. Derm: Skin is intact, Skin is pink, warm \\T\\ dry. Musculoskeletal: Circulation, motion, and sensation intact. Range of motion: intact in all extremities. 23:00 Reassessment: Patient appears in no apparent distress at this time. Patient and/or jb4 family updated on plan of care and expected duration. Pain level reassessed. Patient is alert, oriented x 3, equal unlabored respirations, skin warm/dry/pink. 03/19 00:00 Reassessment: Patient appears in no apparent distress at this time. Patient and/or jb4 family updated on plan of care and expected duration. Pain level reassessed. Patient is alert, oriented x 3, equal unlabored respirations, skin warm/dry/pink. 01:00 Reassessment: Patient appears in no apparent distress at this time. Patient and/or jb4 family updated on plan of care and expected duration. Pain level reassessed. Patient is alert, oriented x 3, equal unlabored respirations, skin warm/dry/pink. 02:00 Reassessment: Patient appears in no apparent distress at this time. Patient and/or jb4 family updated on plan of care and expected duration. Pain level reassessed. Patient is alert, oriented x 3, equal unlabored respirations, skin warm/dry/pink. 03:09 Reassessment: Patient appears in no apparent distress at this time. Patient and/or jb4 family updated on plan of care and expected duration. Pain level reassessed. Patient is alert, oriented x 3, equal unlabored respirations, skin warm/dry/pink. Vital Signs: 03/18 22:41 BP 153 / 93; Pulse 63; Resp 18; Temp 98.2(O); Pulse Ox 100% on R/A; Weight 132.45 kg; ms4 Height 6 ft. 8 in. (203.20 cm); Pain 0/10; 23:00 BP 147 / 83; Pulse 62; Resp 16; Pulse Ox 100% on R/A; jb4 03/19 00:30 BP 154 / 88; Pulse 58; Resp 18; Pulse Ox 99% on R/A; jb4 02:00 BP 153 / 83; Pulse 68; Resp 16; Pulse Ox 97% on R/A; jb4 02:30 BP 146 / 79; Pulse 64; Resp 16; Pulse Ox 100% on R/A; jb4 03/18 22:41 Body Mass Index 32.08 (132.45 kg, 203.20 cm) ms4 ED Course: 03/18 20:08 Patient arrived in ED. cf2 22:04 Aristides Lui MD is Attending Physician. pkl 22:07 Jermaine Akhtar PA is PHCP. cp 22:07 Aristides Lui MD is Attending Physician. cp 22:15 Patient has correct armband on for positive identification. Placed in gown. Bed in low jb4 position. Call light in reach. Side rails up X 1. Pulse ox on. NIBP on. 22:43 Triage completed. ms4 22:44 Arm band placed on right wrist. ms4 23:00 XRAY Chest (1 view) In Process Unspecified. EDMS 23:03 Domenico Beltran, RN is Primary Nurse. jb4 23:17 Inserted saline lock: 20 gauge in right antecubital area, using aseptic technique. wr Blood collected. 23:25 CT Head C Spine In Process Unspecified. EDMS 0907 02:40 Arben Ro DO is Referral Physician. cp 03:09 No provider procedures requiring assistance completed. IV discontinued, intact, jb4 bleeding controlled, No redness/swelling at site. Pressure dressing applied. Administered Medications: 01:55 Drug: Potassium Effervescent Tablet 50 mEq Route: PO; jb4 01:55 Drug: Ativan (LORazepam) 0.5 mg Route: IVP; Site: right antecubital; jb4 Outcome: 02:40 Discharge ordered by . cp 03:09 Discharged to home ambulatory. jb4 03:09 Condition: stable 03:09 Discharge instructions given to patient, Instructed on discharge instructions, follow up and referral plans. medication usage, Demonstrated understanding of instructions, follow-up care, medications, Prescriptions given X 1. 03:10 Patient left the ED. jb4 Signatures: Dispatcher [employer] EDTX Hu, Pin, MD MD pkl Jermaine Akhtar PA PA cp Bryson, James, RN RN jb4 Feliz Haley 2 Mary Hull RN RN ms4 William Kellogg
--- NOTE | 2021-03-19 02:41 | EDPHYS ---
Physician Documentation [facility] Name: Ashok Galan Jr Age: 50 yrs Sex: Male : 1970 Arrival Date: 03/18/2021 Time: 20:08 Bed 2 Private MD: ED Physician Aristides Lui HPI: 03/18 22:45 This 50 yrs old Black Male presents to ER via Ambulatory with complaints of Doesn't cp Feel Right, ARMS FEEL TINGLY, Neck Pain, <24hrs Old, FEELS OFF BALANCE, Vomiting, Decreased Appetite, CANT SLEEP, FEELS COLD ON THE INSIDE. 22:45 The patient's problem is reported as paresthesias, all over, in right lower extremity, cp in left upper extremity. 03/19 17:15 Onset: The symptoms/episode began/occurred multiple episodes over past several days. cp Duration: The episodes are intermittent. Context: Possible contributing factors include: recently quit use of marijuana. Associated signs and symptoms: Pertinent positives: posterior neck and back of head pain, Pertinent negatives: chest pain, combativeness, confusion, dizziness, palpitations, weakness. Patient's baseline: Neuro: alert and fully oriented, Motor: no deficits, Ambulation: walks without assistance, Speech: normal. Historical: - Allergies: 03/18 22:43 No Known Allergies; ms4 - PMHx: 22:43 GI ulcers; Hypertension; ms4 - Immunization history:: Adult Immunizations up to date, Client reports having NOT received the Covid vaccine. - Social history:: Smoking status: unknown. ROS: 22:50 Constitutional: Positive for chills, Negative for body aches, fever, poor PO intake. cp 22:50 Eyes: Negative for injury, pain, redness, and discharge. cp 22:50 Neck: Positive for pain at rest, Negative for injury or acute deformity. 22:50 Cardiovascular: Negative for chest pain, edema. 22:50 Respiratory: Negative for cough, shortness of breath, wheezing. 22:50 Abdomen/GI: Negative for abdominal pain, diarrhea, constipation, anorexia, black/tarry cp stool, rectal bleeding, active vomiting. 22:50 : Negative for urinary symptoms. 22:50 Neuro: Positive for headache, tingling, of the right hand and left hand and generalized, Negative for altered mental status, dizziness, syncope, weakness. 22:50 All other systems are negative. Exam: 23:00 Constitutional: The patient appears in no acute distress, alert, awake, cp non-diaphoretic, non-toxic, well developed, well nourished, obese. 23:00 Head/Face: Normocephalic, atraumatic. cp 23:00 Eyes: Periorbital structures: appear normal, Pupils: equal, round, and reactive to light and accomodation, Extraocular movements: intact throughout, Conjunctiva: normal, no exudate, no injection, Sclera: no appreciated abnormality, Lids and lashes: appear normal, bilaterally. 23:00 ENT: External ear(s): are unremarkable, Nose: is normal, Mouth: Lips: moist, Oral mucosa: moist, Posterior pharynx: Airway: no evidence of obstruction, patent. 23:00 Neck: ROM/movement: pain, that is mild, with any movement, limited range of motion, is not appreciated, nuchal rigidity, is not appreciated. 23:00 Chest/axilla: Inspection: normal, Palpation: is normal, no crepitus, no tenderness. 23:00 Cardiovascular: Rate: normal, Rhythm: regular, Pulses: Pulses are 2+ in right radial artery and left radial artery. Edema: is not appreciated, JVD: is not appreciated. 23:00 Respiratory: the patient does not display signs of respiratory distress, Respirations: normal, no use of accessory muscles, no retractions, labored breathing, is not present, Breath sounds: are clear throughout, no decreased breath sounds, no stridor, no wheezing. 23:00 Abdomen/GI: Exam negative for discomfort, distension, guarding, Inspection: abdomen appears normal. 23:00 Back: pain, is absent, ROM is normal. 23:00 Skin: cellulitis, is not appreciated, no rash present. 23:00 Neuro: Orientation: to person, place \T\ time. Mentation: is normal, Cerebellar function: is grossly normal, Motor: moves all fours, strength is normal, Sensation: tingling, that is mild, of the right hand and left hand. 23:05 ECG was reviewed by the Attending Physician. cp 03/19 02:20 Radiologist reports: no acute findings cp Vital Signs: 03/18 22:41 BP 153 / 93; Pulse 63; Resp 18; Temp 98.2(O); Pulse Ox 100% on R/A; Weight 132.45 kg; ms4 Height 6 ft. 8 in. (203.20 cm); Pain 0/10; 23:00 BP 147 / 83; Pulse 62; Resp 16; Pulse Ox 100% on R/A; jb4 03/19 00:30 BP 154 / 88; Pulse 58; Resp 18; Pulse Ox 99% on R/A; jb4 02:00 BP 153 / 83; Pulse 68; Resp 16; Pulse Ox 97% on R/A; jb4 02:30 BP 146 / 79; Pulse 64; Resp 16; Pulse Ox 100% on R/A; jb4 03/18 22:41 Body Mass Index 32.08 (132.45 kg, 203.20 cm) ms4 MDM: 03/18 22:38 Patient medically screened. cp 23:00 Differential diagnosis: CVA, TIA, metabolic disorder, drug effects, anxiety, cardiac cp arrythmia. 03/19 02:35 Data reviewed: vital signs, nurses notes, lab test result(s), EKG, radiologic studies, cp CT scan, plain films. 02:35 Test interpretation: by ED physician or midlevel provider: ECG, plain radiologic cp studies. 02:35 Counseling: I had a detailed discussion with the patient and/or guardian regarding: the cp historical points, exam findings, and any diagnostic results supporting the discharge/admit diagnosis, lab results, radiology results, the need for outpatient follow up, a family practitioner, to return to the emergency department if symptoms worsen or persist or if there are any questions or concerns that arise at home. Response to treatment: the patient's symptoms have mildly improved after treatment, and as a result, I will discharge patient. ED course: VSS. Discussed results of labs, EKG and radiology studies. Potassium replaced orally. Will discharge to home for continued monitoring. 03/18 22:35 Order name: Basic Metabolic Panel cp 03/18 22:35 Order name: CBC with Diff cp 03/18 22:35 Order name: LFT's cp 03/18 22:35 Order name: Magnesium; Complete Time: 23:44 cp 03/18 22:35 Order name: NT PRO-BNP; Complete Time: 23:44 cp 03/18 22:35 Order name: PT-INR; Complete Time: 23:44 cp 03/18 23:44 Interpretation: Reviewed. cp 03/18 22:35 Order name: Troponin (emerg Dept Use Only); Complete Time: 23:44 cp 03/18 22:35 Order name: Basic Metabolic Panel; Complete Time: 23:44 EDMS 03/18 23:44 Interpretation: Normal except: K 3.1; CL 109; GFR 80. cp 03/18 22:35 Order name: CBC with Automated Diff; Complete Time: 00:31 EDMS 03/18 23:44 Interpretation: Normal except: RBC 6.34; HGB 11.4; HCT 36.9; MCV 58.3; MCH 18.0; MCHC cp 31.0; RDW 16.0. 03/18 22:35 Order name: Liver (Hepatic) Function; Complete Time: 23:44 EDMS 03/18 22:50 Order name: Urine Microscopic Only cp 03/18 23:27 Order name: CBC Smear Scan; Complete Time: 00:31 EDMS 03/18 22:35 Order name: XRAY Chest (1 view) cp 03/18 22:35 Order name: EKG; Complete Time: 22:35 cp 03/18 22:35 Order name: Cardiac monitoring; Complete Time: 23:17 cp 03/18 22:35 Order name: EKG - Nurse/Tech; Complete Time: 23:17 cp 03/18 22:35 Order name: IV Saline Lock; Complete Time: 23:04 cp 03/18 22:35 Order name: Labs collected and sent; Complete Time: 23:04 cp 03/18 22:35 Order name: O2 Per Protocol; Complete Time: 23:04 cp 03/18 22:35 Order name: O2 Sat Monitoring; Complete Time: 23:04 cp 03/18 22:50 Order name: CT Head C Spine cp 03/18 22:50 Order name: Urine Dipstick-Ancillary (obtain specimen); Complete Time: 01:05 cp 03/18 23:48 Order name: Urine Dipstick-Ancillary; Complete Time: 00:31 EDMS 03/19 00:54 Order name: SARS-COV-2 RT PCR; Complete Time: 00:59 EDMS 03/19 01:00 Interpretation: Results reviewed. cp EC/06 23:05 Rate is 69 beats/min. Rhythm is regular. QRS interval is normal. QT interval is normal. cp Interpreted by me. Reviewed by me. Administered Medications: 03/19 01:55 Drug: Potassium Effervescent Tablet 50 mEq Route: PO; jb4 01:55 Drug: Ativan (LORazepam) 0.5 mg Route: IVP; Site: right antecubital; jb4 Disposition: 06:45 Co-signature as Attending Physician, Aristides Lui MD. pkl Disposition Summary: 03/19/21 02:40 Discharge Ordered Location: Home cp Problem: new cp Symptoms: have improved cp Condition: Stable cp Diagnosis - Anxiety disorder, unspecified cp - Hypokalemia cp Followup: cp - With: Arben Ro, DO - When: 1 - 2 days - Reason: Recheck today's complaints Discharge Instructions: - Discharge Summary Sheet cp - Generalized Anxiety Disorder, Adult cp - Hypokalemia cp Forms: - Medication Reconciliation Form cp - Thank You Letter cp - Antibiotic Education cp - Prescription Opioid Use cp Prescriptions: - Vistaril 25 mg Oral capsule - take 1 capsule by ORAL route 4 times per day As needed; 30 capsule; Refills: 0, cp Product Selection Permitted Signatures: Dispatcher [employer] EDAristides Hoyos MD MD pkl Jermaine Akhtar PA PA cp Domenico Beltran, RN RN jb4 Mary Hull RN RN ms4 Corrections: (The following items were deleted from the chart) 00:00 03/18 22:50 CORONAVIRUS+ ordered. EDGA EDMS
[2021-03-19 03:14] LABS: Urine Bacteria <20 /HPF (NONE SEEN); Urine RBC <5 /HPF (NONE SEEN)
[2021-03-19 03:18] VITALS: TEMP 98.2
[2021-03-19 03:23] VITALS: BP 146/79; O2SAT 100
--- NOTE | 2021-03-19 07:34 | RAD REPORT ---
EXAM DESCRIPTION: RAD - Chest Single View - 03/18/2021 11:00 pm CLINICAL HISTORY: PAIN COMPARISON: Chest Single View dated 02/09/2016; CHEST SINGLE VIEW dated 08/27/2014 FINDINGS: Lines: None. Lungs: No evidence of edema or pneumonia. Pleural: No significant pleural effusions or pneumothorax. Cardiac: The heart size is within normal limits. Bones: No acute fractures. Other: IMPRESSION: No acute cardiopulmonary disease.
--- NOTE | 2021-03-19 10:55 | EKG ---
Test Date: 2021-03-18 Test Time: 22:57:35 Maitre D': MEASUREMENT RESULTS: Intervals: Rate: 69 NE: QRSD: 92 QT: 398 QTc: 426 [place]ote: P: NE: QRS: -2 T: 5 INTERPRETIVE STATEMENTS: Accelerated Junctional rhythm Abnormal ECG Compared to ECG 02/09/2016 22:05:50 Accelerated junctional rhythm now present Sinus rhythm no longer present Electronically Signed On 03-19-21 10:53:36 CDT by Logan Underwood
--- NOTE | 2021-03-19 12:00 | RAD REPORT ---
EXAM DESCRIPTION: CT - Head C Spine Mpr Wo Con - 03/19/2021 6:17 am CLINICAL HISTORY: The patient is 50 years old and is Male; PAIN TECHNIQUE: Axial computed tomography images of the head/brain and cervical spine without intravenous contrast. Sagittal and coronal reformatted images were created and reviewed. This CT exam was pe rformed using one or more of the following dose reduction techniques: automated exposure control, a djustment of the mA and/or kV according to patient size, and/or use of iterative reconstruction techn ique. COMPARISON: No relevant prior studies available. FINDINGS: BRAIN: Unremarkable. No hemorrhage. No significant white matter disease. No edema. VENTRICLES: Unremarkable. No ventriculomegaly. SKULL: No acute fracture. SINUSES: Unremarkable as visualized. No acute sinusitis. MASTOID AIR CELLS: Unremarkable as visualized. No mastoid effusion. VERTEBRAE: The vertebral body heights and alignment are maintained. No acute fracture. DISCS/SPINAL CANAL/NEURAL FORAMINA: The intervertebral disc spaces are maintained. No spinal can al stenosis. SOFT TISSUES: The soft tissues are normal. LUNG APICES: Unremarkable as visualized. IMPRESSION: 1. No acute intracranial findings. 2. No fracture or malalignment of the cervical spine. Electronically signed by: Jo Ann Page MD 03/18/2021 11:59 PM CDT Due to temporary technical issues with the PACS/Fluency reporting system, reports are being signed by the in house radiologist without review as a courtesy to ensure prompt reporting. The interpreting r adiologist is fully responsible for the content of the report.
== END 2021-03-19 03:10 | disposition home or self-care (01) ==
LOC: ER 20:05
DX: F41.9 Anxiety disorder, unspecified (principal); E87.6 Hypokalemia; I10 Essential (primary) hypertension; Z20.822 Contact with and (suspected) exposure to COVID-19
CPT/HCPCS: 93005; 85025; 80048; 36415; 83735; 85610; 80076; 84484; 83880; 70450; 72125; 71045; 96374; 99284; U0003; 81003; 81015

== ENCOUNTER 2023-05-15 22:01 | Emergency (ER) | payer OTHER ==
--- OUTSIDE RECORDS SUMMARY | 2023-05-15 22:04 | XMS REPORT | Continuity of Care Document ---
:1970 Author Organization [facility] t Address [address] [place] [address] [place] [id number] Care Team Providers Name Role Phone Arben Ro Primary Care Physician SONU GAFFNEY Attending Clinician Unavailable Doctor Unassigned, [place] Attending Clinician Unavailable Sonu Gaffney MD Attending Clinician Ld [place] MD Attending Clinician Pob, [facility] Main Attending Clinician Unavailable LD [place] Attending Clinician Unavailable SONU GAFFNEY Admitting Clinician Unavailable Sonu Gaffney MD Admitting Clinician Payers Payer Name Policy Type Policy Number Effective Date Expiration Date Mark PAUL II [id number] 2020 00:00:00 Problems Condition Condition Condition Status Onset Resolution Last Treating Co mments Source Name Details Category Date Date Treatment Clinician Date Obesity Obesity Disease Active Univers (BMI (BMI 9-23 ity of 30-39.9) 30-39.9) 00:00: [address] Acute Acute Disease Active Univers diverticul diverticul 04-04 it y of itis itis 00:00: [address] Diverticul Diverticul Disease Active U nivers itis itis -23 ity of 00:00: [address] Allergies, Adverse Reactions, Alerts Allergy Allergy Status Severity Reaction(s) Onset Inactive Treating Comm ents Source Name Type Date Date Clinician NO KNOWN Drug Active Univers ALLERGIE Class ity of S [facility] [place] [facility] Social History Social Habit Start Date Stop Date Quantity Comments Source Exposure to Not sure [facility] SARS-CoV-2 Medical Lottie (event) Tobacco use and 2021-04-04 2021-04-04 Current user Univers [facility] of [place] exposure 00:00:00 00:00:00 Medical Branch Sex Ass[birth year] [facility] 00:00:00 00:00:00 Medical Branch Smoking Status Start Date Stop Date Source Unknown if ever smoked [facility] Current every day smoker 2021-04-04 00:00:00 Uni versity [facility] Medications Ordered Filled Start Stop Current Ordering Indication Dosage Frequency Signature Comments Components Source Medication Medication Date Date Medication? Clinician (SIG) Name Name metoprolol Yes 25mg 25 mg, Unive rs succinate 04-06 Oral, QHS, ity of [place] (TOPROL 02:00: First dose [place] XL) tablet 00 on Thu Medical 25 mg 04/05/21 at Branch 2100, Until Discontinu ed, Routine pantoprazol Yes 40mg 40 mg, Univ ers e 9- Oral, ity of (PROTONIX) 14:00: DAILY, [place] EC tablet 00 First dose Medi robin 40 mg on Fri Branch 04/05/21 at 0900, Until Discontinu ed, Routine lisinopriL Yes 20mg 20 mg, Unive rs (PRINIVIL,Z 04-05 Oral, ity of ESTRIL) 14:00: DAILY, [place] tablet 20 00 First dose Medi robin mg on Fri Branch 04/05/21 at 0900, Until Discontinu ed, Routine enoxaparin Yes 40mg 40 mg, Unive rs (LOVENOX) 04-05 Subcutaneo ity of injection 14:00: [place], [place]ILY, [place] 40 mg 00 First dose Medical on Fri Branch 04/05/21 at 0900, Until Discontinu ed, Routine busPIRone Yes 20mg 20 mg, Univer s (BUSPAR) 9-24 Oral, BID, ity o f tablet 20 13:00: [place] mg 00 on Fri Medical 04/05/21 at Branch 0800, Until Discontinu ed, Routine esomeprazol Yes 40mg Take 40 mg Univers e 40 mg 9-24 by mouth ity of capsule 11:30: daily [place] 29 breakfast. Medical Branch busPIRone 2020-0 Yes 20mg Take 20 mg Un [place] 10 mg 9-24 by mouth 2 ity of tablet 11:30: (two) [place] 29 times Medical daily. Branch lisinopriL 0 Yes 20mg Take 20 mg U nivers 20 mg 9-24 by mouth ity of tablet 11:30: daily. [place] [address] Medical Branch metoprolol 2020-0 Yes 25mg Take 25 mg U nivers succinate 9-24 by mouth ity of XL 25 mg 24 11:30: at [place] hr tablet 29 bedtime. Medica l Branch hydrOXYzine 2020-0 Yes 25mg Take 25 mg Univers 25 mg 9-24 by mouth ity of capsule 11:30: at bedtime [place] 29 as needed Medical (Insomnia) Branch . esomeprazol 0 Yes 40mg Take 40 mg Univers e 40 mg 9-24 by mouth [place]y of capsule 11:30: daily [place] 29 breakfast. Medical Branch busPIRone 0 Yes 20mg Take 20 mg Un [place] 10 mg 9-24 by mouth 2 ity of tablet 11:30: (two) [place] 29 times Medical daily. Branch lisinopriL 0 Yes 20mg Take 20 mg U nivers 20 mg 9-24 by mouth ity of tablet 11:30: daily. [place] [address] Medical Branch metoprolol 0 Yes 25mg Take 25 mg U nivers succinate 9-24 by mouth ity of XL 25 mg 24 11:30: at [place] hr tablet 29 bedtime. Medica l Branch hydrOXYzine 0 Yes 25mg Take 25 mg Univers 25 mg 9-24 by mouth [place]y of capsule 11:30: at [place]time [place] 29 as needed Medical (Insomnia) Branch . piperacilli 2020-0 Yes 3.375g 3.375 g, Univers n-tazobacta 9-24 IV ity of m (ZOSYN) 06:15: [place]gyback, [place] 3.375 g in 00 Q6H ABX, Medic al NaCl 0.9% First dose Bran ch (NS) 100 mL on Fri MINI-BAG 04/05/21 at 0115, Until Discontinu ed, Administer over 30 Minutes, 100 mL
Reas on for Anti-Infec tive: Documented Infection< br>Documen mila Infection Site: Abdominal< br>Duratio n of Therapy: 10 days KCL 2020- No 40meq 40 mEq, Univers (KLOR-CON 04-05 Oral, ity of M20) tablet 06:15: 05:33 ONCE, 1 [place] 40 mEq 00 :00 dose, On Medical Fri Branch 04/05/21 at 0115, Routine hydrOXYzine Yes 25mg 25 mg, [facility] [place] [facility] ers (ATARAX) 04-05 Oral, ity of tablet 25 03:34: QHSPRN, [place] mg 28 Starting Medical on Demetrice Branch 04/04/21 at 2234, Until Discontinu ed, insomnia NaCl 0.9% Yes 1000mL at 125 [facility] [place] [facility] ers (NS) IV 9-24 mL/hr, IV ity of infusion 02:45: Infusion, [place] 1[place]000 mL 00 CONTINUOUS Medic al , Starting Branch on Demetrice 04/04/21 at 2145, Until Discontinu ed, Routine ondansetron Yes 4mg 4 mg, Slow Univers (ZOFRAN 04-05 IV Push, ity of (PF)) 02:40: Q6HPRN, [place] injection 4 46 Starting Medi robin mg on Demetrice Branch 04/04/21 at 2140, Until Discontinu ed, Routine, Nausea and Vomiting (N/V) morpHINE 2020- No 2mg 2 mg, Slow Un catherine injection 2 04-05 IV Push, ity of mg 02:40: 02:39 Q4RN, [place] 40 :40 Starting Medical on Demetrice Branch 04/04/21 at 2140, Until 04/05/21 at 213, Routine, Pain (scale 7-10) acetaminoph 2020- No 1{tbl} 1 tablet, Univers en-codeine 04-05 Oral, ity of (TYLENOL 02:40: 02:39 Q6HPRN, [place] #3) 300-30 37 :37 Starting Medic al mg tablet 1 on [facility] Branch tablet 04/04/21 at 2140, Until 04/06/21 at 2139, Routine, Pain (scale 4-6) acetaminoph Yes 650mg 650 mg, Un catherine en 04-05 Oral, ity of (TYLENOL) 02:40: Q6HPRN, [place] tablet 650 36 Starting Medic al mg on Demetrice Branch 04/04/21 at 2140, Until Discontinu ed, Routine, Pain (scale 1-3) amoxicillin 2020- No [id number] 1{tbl} Take 1 Univers -clavulanat 04-05 tablet by it y of e 00:00: 04:59 mouth 2 [place] (AUGMENTIN) 00 :00 (two) Medical 875-125 mg times Branch per tablet daily for 10 days. acetaminoph 2020- No [id number] 1{tbl} Take 1 U nivers en-codeine 04-05 tablet by ity of 300-30 mg 00:00: 04:59 mouth [place] tablet 00 :00 every 4 Medical (four) Branch hours as needed for Pain (scale 7-10) for up to 7 days. Indication s: acute pain Vital Signs Vital Name Observation Time Observation Value Comments Source Systolic blood 2021-04-05 130 mm[Hg] [facility] pressure 12:47:00 [facility] [place] [facility] Diastolic blood 2021-04-05 75 mm[Hg] [place] o f pressure 12:47:00 [facility] [place] [facility] Heart rate 2021-04-05 78 /min [facility] 12:47:00 [facility] [place] [facility] Body temperature 2021-04-05 36.78 Carrie [facility] 12:47:00 [facility] [place] [facility] Respiratory rate 2021-04-05 18 /min [facility] 12:47:00 [facility] [place] [facility] Oxygen saturation 2021-04-05 96 /min [facility] in Arterial blood 12:47:[address] [facility] by Pulse oximetry Branch Body weight 2021-04-05 124 kg Simultaneous [facility] 02:00:00 filing. User may [place] Medic al not have seen Branch previous data. BMI 2021-04-05 30.03 kg/m2 [facility] 02:00:00 [facility] [place] [facility] Body height 2021-04-05 203.2 cm Simultaneous [facility] 02:00:00 filing. User may [place] Medic al not have seen Branch previous data. Procedures Procedure Date / Time Performing Clinician Source Performed EXTERNAL PROVIDER RECORDS 2021-04-24 05:01:00 Doctor Valerie, [facility] [place] Medical [place] HEPATIC FUNCTION PANEL 2021-04-05 03:12:00 Sonu Gaffney [facility] ([id number]) (ALB,T.PRO,BILI Medical Branch T,BU/BC,ALT,AST,ALK PHOS) BASIC METABOLIC PANEL (NA, 2021-04-05 03:12:00 Sonu Gaffney [facility] K, CL, CO2, GLUCOSE, BUN, Medica l Branch CREATININE, [place]) CBC WITH DIFF 2021-04-05 03:12:00 Sonu Gaffney [place] [facility] [place] [facility] US ABDOMEN COMPLETE 2021-03-14 22:06:[address] [facility] PATIENT FINANCIAL 2021-03-14 21:19:44 Doctor Valerie, [facility] POLICY [place] [facility] NO SHOW OR MISSED 2021-03-14 21:19:23 Doctor Padilla [facility] APPOINTMENT POLICY [place] Medical Bran h ACKNOWLEDGEMENT NOTICE OF PRIVACY 2021-03-14 21:19:05 Doctor Valerie, [facility] PRACTICES [place] [facility] CONSENT/REFUSAL FOR 2021-03-14 21:18:46 Doctor Padilla [facility] DIAGNOSIS AND TREATMENT [place] [facility] ASSIGNMENT OF BENEFITS 2021-03-14 21:18:30 Doctor Valerie, [facility] Name Medical Lottie Encounters Start End Encounter Admission Attending Care Care Encounter Source Date/Time Date/Time Type Type Clinicians Facility Department ID 2021-05-14 Inpatient U [facility] [id number] Univers 01:01:35 [facility] 2021-04-24 2021-04-24 Orders Doctor VAZQUEZ [id number] Univers 00:00:00 00:00:00 Only ROB Padilla [id number] ity of [place] [facility] [id number] Abdoul as [id number] [place] [address] Branch 2021-04-04 2021-04-05 Hospital [facility] [id number] Univers 21:07:00 11:30:00 Encounter [facility] [id number] ity of [place] 4.2.7.2.686 [facility] [id number] [facility] 113 [facility] ([facility]) 2021-03-14 2021-03-14 [facility] [id number] [facility] 16:29:44 23:59:00 Encounter [facility] [id number] ity of [place] [id number] [facility] [id number] [facility] 806 Lottie 2021-03-14 2021-03-14 Webmethods Architect [place], Yogesh Lab Main [facility] 1.2.8 [id number] [facility] 16:29:08 16:44:08 [facility] [id number] ity of [place] [id number] [facility] Professio [id number] Dc dical [facility] 353 [facility] 2021-03-14 2021-03-14 [facility] [id number] [facility]:00:00 [facility] Test Description Test Time Test Comments Results Result Comments Source BASIC METABOLIC PANEL (NA, K, CL, CO2, GLUCOSE, BUN, 2021-03 03:48:23 CREATININE, [place]) Test Item Value Reference Range Interpretation Comme nts NA (test code = 8201783898) 141 mmol/L 135-145 K (test code = 3955927052) 3.4 mmol/L 3.5-5.0 L CL (test code = 1247714721) 108 mmol/L 98-108 CO2 TOTAL (test code = 3297398407) 23 mmol/L 23-31 AGAP (test code = 1744776926) 2-16 BUN (test code = 0046492099) 10 mg/dL 7-23 GLUCOSE (test code = 1230043847) 102 mg/dL 70-110 CREATININE (test code = 1.04 mg/dL 0.60-1.25 5658209321) CALCIUM (test code = 5906723896) 8.9 mg/dL 8.6-10.6 eGFR (test code = 6777654280) mL/min/1.73m2 ELISABET (test code = ELISABET) Association of Glomerular Filtration Rate (GFR) and Staging of Kidney Disease* + +-------- + ------+| GFR (mL/min/1.73 m2) ?| With Kidney Damage ?| ?Without Kidney Damage+ +-- + +| ?>90 ?| ?Stage one ?| ? Normal ?+ +------- + -------+| ?60-89 ?| ?Stage two ?| ? Decreased GFR ? + +-------- + ------+| ?30-59 ?| ?Stage three ?| ? Stage three ? + +-------- + ------+| ?15-29 ?| ?Stage four ? | ? Stage four ?+ +------- + -------+| ?<15 (or dialysis) ? ?| ?Stage five ? | ? Stage five ?+ +------- + -------+ *Each stage assumes the associated GFR level has been in effect for at least three months. ?Stages 1 to 5, with or without kidney disease, indicate chronic kidney disease. Notes: Determination of stages one and two (with eGFR >59mL/min/1.73 m2) requires estimation of kidney damage for at least three months as defined by structural or functional abnormalities of the kidney, manifested by either:Pathological abnormalities or Markers of kidney damage (including abnormalities in the composition of the blood or urine or abnormalities in imaging tests). Lab Interpretation (test code = Abnormal 41503-9) [id number] (ALB,T.PRO,BILI T,BU/BC,ALT,AST,ALK PHOS)2021-04-05 03:48:23 Test Item Value Reference Range Interpretation Comments TOTAL BILI (test code = 4134195497) 0.9 mg/dL 0.1-1.1 BILI UNCON (test code = 1770947595) 0.7 mg/dL 0.1-1.1 BILI CONJ (test code = 4480599347) 0.0 mg/dL 0.0-0.3 T PROTEIN (test code = 4669760611) 7.1 g/dL 6.3-8.2 ALBUMIN (test code = 5123961712) 4.4 g/dL 3.5-5.0 ALK PHOS (test code = 2187053307) 47 U/L 34-122 ALTv (test code = 1742-6) 20 U/L 5-50 AST(SGOT) (test code = 1312193220) 22 U/L 13-40 Lab Interpretation (test code = Normal 10723-1) General acute hospital WITH [id number] 03:45:40 Test Item Value Reference Range Interpretation Comments WBC (test code = See_Comment H [Automated 6690-2) message] The sy stem which generated this result transmitted reference range : 4.20 - 10.70 10*3/?L. The reference range was not used to interpret this result as normal/abnormal . RBC (test code = See_Comment H [Automated 789-8) message] The sy stem which generated this result transmitted reference range : 4.26 - 5.52 10*6/?L. The reference range was not used to interpret this result as normal/abnormal . HGB (test code = 11.0 g/dL 12.2-16.4 L 718-7) HCT (test code = 37.3 % 38.4-49.3 L 4544-3) MCV (test code = 59.7 fL 81.7-95.6 L 787-2) MCH (test code = 17.6 pg 26.1-32.7 L 785-6) MCHC (test code = 29.5 g/dL 31.2-35.0 L 786-4) RDW-SD (test code = 33.5 fL 38.5-51.6 L 56731-8) RDW-CV (test code = 18.0 % 12.1-15.4 H 788-0) PLT (test code = See_Comment [Automated 777-3) message] The sy stem which generated this result transmitted reference range : 150 - 328 10*3/ ?L. The reference r parker was not used to interpret this result as normal/abnormal . MPV (test code = Not Measure d 05880-2) IPF % (test code = 12.2 % 1.2-10.7 H Platelet count [id number]) measured by fluorescence method. NRBC/100 WBC (test See_Comment [Automat ed code = 2824633033) message] The system which generated this result transmitted reference range : 0.0 - 10.0 /100 WBCs. The refer ence range was not u sed to interpret th is result as normal/abnormal . NRBC x10^3 (test code <0.01 See_Comment [Auto mated = 2750836778) message] The s ystem which generated this result transmitted reference range : 10*3/?L. The reference range was not used to interpret this result as normal/abnormal . GRAN MAT (NEUT) % 69.4 % (test code = 770-8) IMM GRAN % (test code 0.30 % = 5257164551) LYMPH % (test code = 21.6 % 736-9) MONO % (test code = 7.5 % 5905-5) EOS % (test code = 1.0 % 713-8) BASO % (test code = 0.2 % 706-2) GRAN MAT x10^3(ANC) 8.90 10*3/uL 1.99-6.95 H (test code = 1542093744) IMM GRAN x10^3 (test 0.04 10*3/uL 0.00-0.06 code = 4191371528) LYMPH x10^3 (test code 2.77 10*3/uL 1.09-3.23 = 731-0) MONO x10^3 (test code 0.96 10*3/uL 0.36-1.02 = 742-7) EOS x10^3 (test code = 0.13 10*3/uL 0.06-0.53 711-2) BASO x10^3 (test code 0.03 10*3/uL 0.01-0.09 = 704-7) Lab Interpretation Abnormal (test code = 61789-1) [facility] ABDOMEN [id number] 00:23:49 Impression: Findings most compatible with hepatic steatosis, with a small focal regionof sparing adjacent to the gallbladder fossa. RL: 460 Ordering physician: [...] evident. There is no gallbladder wall thickening orperi cholecystic fluid. A negative sonographic Cotton's sign is reported bythe technologist. Both kidneysare sonographically normal, with the rightkidney measuring 10.8 cm in length and the left kidney 11.6 cm. The spleenis normal in size, contour, and echogenicity. The pancreas is partiallyobscured by bowel gas. The visualized portions of the pancreas areunremarkable. [facility] Results Inft User - 03/14/2021 7:24 PM CDT Ordering physician:LD COLORADOHistory: Fatty (change of) liver, not elsewhere classified Liver lesionExternal orders Technique: Abdominal ultrasoundTechnical quality: AdequateComparison: No prior imaging studies of the abdomen are available.Findings: The liver is of normal size and contour. Hepatic echoes are mildly anddiffusely increased. There is a focal region of subcapsularhypoechogenicity abutting the gallbladderfossa, measuring up toapproximately 1.9 cm. This has [...] gas. The visualized portions of the pancreas areunremarkable.IMPRESSIONImpression:Findings most compatible with hepatic steatosis, with a small focal regionof sparing adjacent to the gallbladder fossa.RL: 460 [facility] [id number] 00:23:49 Impression: Findings most compatible with hepatic steatosis, with a small focal regionof sparing adjacent to the gallbladder fossa. RL: 460 Ordering physician: [...] evident. There is no gallbladder wall thickening orperi cholecystic fluid. A negative sonographic Cotton's sign is reported bythe technologist. Both kidneysare sonographically normal, with the rightkidney measuring 10.8 cm in length and the left kidney 11.6 cm. The spleenis normal in size, contour, and echogenicity. The pancreas is partiallyobscured by bowel gas. The visualized portions of the pancreas areunremarkable. [facility] Results Inft User - 03/14/2021 7:24 PM CDT Ordering physician:LD COLORADOHistory: Fatty (change of) liver, not elsewhere classified Liver lesionExternal orders Technique: Abdominal ultrasoundTechnical quality: AdequateComparison: No prior imaging studies of the abdomen are available.Findings: The liver is of normal size and contour. Hepatic echoes are mildly anddiffusely increased. There is a focal region of subcapsularhypoechogenicity abutting the gallbladderfossa, measuring up toapproximately 1.9 cm. This has [...] gas. The visualized portions of the pancreas areunremarkable.IMPRESSIONImpression:Findings most compatible with hepatic steatosis, with a small focal regionof sparing adjacent to the gallbladder fossa.RL: 460 [facility]"
[2023-05-15 23:02] LABS: Absolute Lymphocytes (CBC) 3.4 K/uL (0.7-4.9); Hematocrit 35.2 % (39.6-49.0); Lymphocytes % 29.7 % (15.3-44.8); MCV 58.4 fL (80-100); MPV 8.6 fL (7.6-11.3); Platelets 232 thou/uL (152-406); RBC Red Blood Cell Count 6.02 M/uL (4.33-5.43)
[2023-05-15] MEDS ORDERED: NA CHLORIDE 0.9% 1,000 ML ONE (23:12)
[2023-05-15] MEDS ORDERED: dexAMETHasone 10 MG/ML VIAL ONE (23:12)
[2023-05-15] MEDS ORDERED: KETOROLAC 30 MG/ML INJ ONE (23:12)
[2023-05-15 23:18] LABS: C-Reactive Protein 24.1 mg/L (<3.00); Potassium 3.8 mEq/L (3.5-5.1)
[2023-05-15 23:36] LABS: Blood Morphology Comment NOTED (NOT SEEN); Platelet Estimate ADEQ; White Blood Cell Scan OK (OK)
[2023-05-15 23:37] LABS: Anisocytosis 1+; Hypochromasia 2+; Ovalocytes 1+; Poikilocytosis 1+; Teardrop Cell 1+
--- NOTE | 2023-05-16 00:53 | EDPHYS ---
Physician Documentation [facility] Name: Ashok Galan Jr Age: 52 yrs Sex: Male : 1970 Arrival Date: 05/15/2023 Time: 22:01 Bed 11 Private MD: ED Physician Chepe Ryena HPI: 05/15 23:00 This 52 yrs old Black Male presents to ER via Ambulatory with complaints of Foot Pain, cp POSSIBLE GOUT. 23:00 The patient presents with pain, that is acute, swelling, tenderness. The complaints cp affect the left foot and left first toe. Context: the patient is able to ambulate, with moderate difficulty, Problem is a result from a previous injury: No. 23:00 Onset: The symptoms/episode began/occurred today. cp 23:00 Associated signs and symptoms: Pertinent positives: swelling, warmth, Pertinent cp negatives fever, injury. Treatment prior to arrival includes: no previous treatment. Patient reports in the past he was told he has borderline gout. Patient reports father with history of gout. Historical: - Allergies: 22:31 No Known Allergies; jb4 - PMHx: 22:31 GI ulcers; Hypertension; Anxiety; jb4 - PSHx: 22:31 None; jb4 - Immunization history:: Adult Immunizations not up to date. - Social history:: Smoking status: Patient reports the use of cigarette tobacco products, smokes one-half pack cigarettes per day. ROS: 23:10 Constitutional: Negative for body aches, chills, fever, poor PO intake, cp 23:10 Eyes: Negative for injury, pain, redness, and discharge, cp 23:10 Cardiovascular: Negative for chest pain, 23:10 Respiratory: Negative for shortness of breath, wheezing, 23:10 MS/extremity: Positive for erythema, pain, swelling, tenderness, of the left foot and left first toe, Negative for paresthesias, 23:10 Neuro: Negative for altered mental status, dizziness, headache, weakness, 23:10 All other systems are negative, Exam: 23:15 Constitutional: The patient appears in no acute distress, alert, awake, non-toxic, well cp developed, well nourished, uncomfortable, 23:15 Head/Face: Normocephalic, atraumatic. cp 23:15 Eyes: Periorbital structures: appear normal, Conjunctiva: normal, no exudate, no injection, Sclera: no appreciated abnormality, Lids and lashes: appear normal, bilaterally, 23:15 ENT: External ear(s): are unremarkable, Nose: is normal, Mouth: Lips: moist, Oral mucosa: pink and intact, moist, Posterior pharynx: Airway: no evidence of obstruction, patent, 23:15 Chest/axilla: Inspection: normal, 23:15 Cardiovascular: Rate: normal, Pulses: Pulses are 2+ in left dorsalis pedis artery. 23:15 Respiratory: the patient does not display signs of respiratory distress, Respirations: normal, no use of accessory muscles, no retractions, 23:15 Abdomen/GI: Inspection: abdomen appears normal, 23:15 Musculoskeletal/extremity: Extremities: grossly normal except: noted in the left foot: valgus deformity of left great toe, metatarsal phalangeal joint swelling and erythema, marked tenderness to palpation of joint, overlying skin intact, Vital Signs: 22:27 BP 147 / 87; Pulse 101; Resp 16; Temp 100; Pulse Ox 100% on R/A; Weight 132.45 kg (R); jb4 Height 6 ft. 8 in. (R); 05/16 00:01 BP 116 / 73; Pulse 85; Resp 16; Pulse Ox 97% on R/A; jb4 05/15 22:27 Body Mass Index 32.08 (132.45 kg, 203.2 cm) jb4 MDM: 05/15 22:20 Patient medically screened. 23:00 Differential diagnosis: septic joint, gouty arthritis, cellulitis. 05/16 00:52 Data reviewed: vital signs, nurses notes, lab test result(s), radiologic studies, plain cp films. 00:52 I considered the following discharge prescriptions or medication management in the emergency department Medications were administered in the Emergency Department. See MAR. Independent interpretation of the following test(s) in the Emergency Department X-Ray: My interpretation is images of left foot negative for fracture. Counseling: I had a detailed discussion with the patient and/or guardian regarding the historical points, exam findings, and any diagnostic results supporting the discharge/admit diagnosis, lab results, radiology results, the need for outpatient follow up, a family practitioner, to return to the emergency department if symptoms worsen or persist or if there are any questions or concerns that arise at home. Response to treatment: the patient's symptoms have markedly improved after treatment, and as a result, I will discharge patient. 05/15 22:45 Order name: CBC with Diff; Complete Time: 23:40 cp 05/15 23:04 Interpretation: Reviewed. cp 05/15 22:45 Order name: Uric Acid; Complete Time: 23:40 cp 05/15 22:45 Order name: BMP; Complete Time: 23:40 cp 05/15 23:40 Interpretation: Normal except: CL 108; GLUC 151; GFR 72. cp 05/15 22:45 Order name: CRP; Complete Time: 23:40 cp 05/15 23:40 Interpretation: Abnormal: C-REACTIVE PROT 24.10. cp 05/15 23:06 Order name: CBC Smear Scan; Complete Time: 23:40 EDMS 05/15 22:45 Order name: XRAY Foot LEFT 3 View cp 05/15 22:45 Order name: IV; Complete Time: 22:55 cp Administered Medications: 05/15 22:55 Not Given (Patient Refused): hydrocodone-acetaminophen(7.5 mg-325 mg) 1 tabs PO once; jb4 RASS on ADMIN: Combtv4, Very Agttd3, Agttd2, Rstlss1, AlertClm0, Drwsy-1, Lt Sdtn-2, Mod Sdtn-3, Dp Sdtn-4, UnArsble-5 23:03 Drug: Ketorolac IVP 15 mg IVP once Route: IVP; Site: right antecubital; jb4 23:03 Drug: Decadron - Dexamethasone IVP 10 mg IVP once Route: IVP; Site: right antecubital; jb4 23:03 Drug: NS 0.9% IV 1000 ml IV at 1 bolus Per protocol; 1000 mL bolus Route: IV; Rate: 1 jb4 bolus; Site: right antecubital; Disposition Summary: 05/16/23 00:52 Discharge Ordered Notes: Location: Home cp Problem: new cp Symptoms: have improved cp Condition: Stable cp Diagnosis - Gout, unspecified - left great toe(05/16/23 00:52) cp Followup: cp - With: Private Physician - When: 2 - 3 days - Reason: Worsening of condition Discharge Instructions: - Discharge Summary Sheet cp - Gout cp - Low-Purine Eating Plan cp Forms: - Medication Reconciliation Form cp - Thank You Letter cp - Antibiotic Education cp - Prescription Opioid Use cp - Patient Portal Instructions cp - Leadership Thank You Letter cp Prescriptions: - indomethacin 50 mg Oral capsule - take 1 capsule ORAL route 3 times per day As needed administer with food or cp milk; 20 capsule; Refills: 0, Product Selection Permitted Addendum: 05/20/2023 15:04 Co-signature as Attending Physician, Chepe Reyna MD I reviewed the patient's care r t provided by the Advanced Practice Provider and agree with the diagnosis and treatment plan. Signatures: Dispatcher [employer] EDSD Jermaine Akhtar PA PA cp Domenico Beltran RN RN jb4 Chepe Reyna MD MD rt Corrections: (The following items were deleted from the chart) 05/16 00:52 00:52 Gout, unspecified cp cp 05/17 01:02 05/15 23:00 Patient reports in the past he was told he has early gout. cp cp
--- NOTE | 2023-05-16 00:53 | ER ---
Nurse's Notes [facility] Name: Ashok Galan Jr Age: 52 yrs Sex: Male : 1970 Arrival Date: 05/15/2023 Time: 22:01 Bed 11 Private MD: Diagnosis: Gout, unspecified-left great toe Presentation: 05/15 22:27 Chief complaint: Patient states: I am having left foot pain I was told in the past I jb4 have border line gout. Coronavirus screen: At this time, the client does not indicate any symptoms associated with coronavirus-19. Ebola Screen: No symptoms or risks identified at this time. Initial Sepsis Screen: Does the patient meet any 2 criteria? HR > 90 bpm. No. Patient's initial sepsis screen is negative. Does the patient have a suspected source of infection? No. Patient's initial sepsis screen is negative. Risk Assessment: Do you want to hurt yourself or someone else? Patient reports no desire to harm self or others. Onset of symptoms was May 15, 2023. Transition of care: patient was not received from another setting of care. 22:27 Method Of Arrival: Ambulatory jb4 22:27 Acuity: JENNIFER 3 jb4 Historical: - Allergies: 22:31 No Known Allergies; jb4 - PMHx: 22:31 GI ulcers; Hypertension; Anxiety; jb4 - PSHx: 22:31 None; jb4 - Immunization history:: Adult Immunizations not up to date. - Social history:: Smoking status: Patient reports the use of cigarette tobacco products, smokes one-half pack cigarettes per day. Screenin:33 [facility] ED Fall Risk Assessment (Adult) History of falling in the last 3 months, jb4 including since admission No falls in past 3 months (0 pts) Confusion or Disorientation No (0 pts) Score/Fall Risk Level 0 - 2 = Low Risk Oriented to surroundings, Maintained a safe environment. Abuse screen: Denies threats or abuse. Nutritional screening: No deficits noted. Tuberculosis screening: No symptoms or risk factors identified. Assessment: 22:32 General: Appears in no apparent distress. comfortable, Behavior is calm, cooperative, jb4 appropriate for age. Pain: Complains of pain in left first toe Pain does not radiate. Pain currently is 10 out of 10 on a pain scale. Neuro: Level of Consciousness is awake, alert, obeys commands, Oriented to person, place, time, situation. Cardiovascular: Patient's skin is warm and dry. Respiratory: Airway is patent Respiratory effort is even, unlabored, Respiratory pattern is regular, symmetrical. GI: No signs and/or symptoms were reported involving the gastrointestinal system. : No signs and/or symptoms were reported regarding the genitourinary system. EENT: No signs and/or symptoms were reported regarding the EENT system. Derm: Skin is intact, Skin is pink, warm \T\ dry. Redness and swelling to the left first toe. Musculoskeletal: Circulation, motion, and sensation intact. Range of motion: intact in all extremities. 05/16 00:01 Reassessment: Patient appears in no apparent distress at this time. Patient and/or jb4 family updated on plan of care and expected duration. Pain level reassessed. Patient is alert, oriented x 3, equal unlabored respirations, skin warm/dry/pink. Vital Signs: 05/15 22:27 BP 147 / 87; Pulse 101; Resp 16; Temp 100; Pulse Ox 100% on R/A; Weight 132.45 kg (R); jb4 Height 6 ft. 8 in. (R); 05/16 00:01 BP 116 / 73; Pulse 85; Resp 16; Pulse Ox 97% on R/A; jb4 05/15 22:27 Body Mass Index 32.08 (132.45 kg, 203.2 cm) jb4 ED Course: 05/15 22:03 Patient arrived in ED. jj6 22:07 Jermaine Akhtar PA is PHCP. cp 22:07 Chepe Reyna MD is Attending Physician. cp 22:31 Triage completed. jb4 22:31 Arm band placed on right wrist. jb4 22:33 Patient has correct armband on for positive identification. Bed in low position. Call jb4 light in reach. Side rails up X 1. 23:58 XRAY Foot LEFT 3 View In Process Unspecified. EDMS 05/16 01:18 No provider procedures requiring assistance completed. IV discontinued, intact, vc1 bleeding controlled, No redness/swelling at site. Pressure dressing applied. Administered Medications: 05/15 22:55 Not Given (Patient Refused): hydrocodone-acetaminophen(7.5 mg-325 mg) 1 tabs PO once; jb4 RASS on ADMIN: Combtv4, Very Agttd3, Agttd2, Rstlss1, AlertClm0, Drwsy-1, Lt Sdtn-2, Mod Sdtn-3, Dp Sdtn-4, UnArsble-5 23:03 Drug: Ketorolac IVP 15 mg IVP once Route: IVP; Site: right antecubital; jb4 23:03 Drug: Decadron - Dexamethasone IVP 10 mg IVP once Route: IVP; Site: right antecubital; jb4 23:03 Drug: NS 0.9% IV 1000 ml IV at 1 bolus Per protocol; 1000 mL bolus Route: IV; Rate: 1 jb4 bolus; Site: right antecubital; Medication: 05/16 01:19 VIS not applicable for this client. vc1 Outcome: 00:52 Discharge ordered by . jude 01:18 Discharged to home ambulatory, vc1 01:18 Condition: good 01:18 Discharge instructions given to patient, Instructed on discharge instructions, follow up and referral plans. medication usage, Demonstrated understanding of instructions, follow-up care, medications, Prescriptions given X 1, 01:19 Patient left the ED. vc1 Signatures: Dispatcher [employer] EDMS Jermaine Akhtar PA PA cp Bryson, James, RN RN jb4 Michelle Johnsonj6 Malu Oconnell RN RN vc1
--- NOTE | 2023-05-16 13:36 | RAD REPORT ---
EXAM DESCRIPTION: RAD - Foot Left 3 View - 05/15/2023 11:56 pm CLINICAL HISTORY: The patient is 52 years old and is Male; Pain;Swelling TECHNIQUE: Frontal, lateral and oblique views of the left foot. COMPARISON: No relevant prior studies available. FINDINGS: Bones/joints: Unremarkable. No acute fracture. No dislocation. Soft tissues: Mild adjacent soft tissue swelling. No radiopaque foreign body. IMPRESSION: No acute fracture or dislocation. Electronically signed by: Po Acosta MD 05/16/2023 12:32 AM CDT Due to temporary technical issues with the PACS/Fluency reporting system, reports are being signed by the in house radiologists without review as a courtesy to insure prompt reporting. The interpreting radiologist is fully responsible for the content of the report.
== END 2023-05-16 01:19 | disposition home or self-care (01) ==
LOC: ER 22:01
DX: M10.9 Gout, unspecified (principal); F17.210 Nicotine dependence, cigarettes, uncomplicated
CPT/HCPCS: 85025; 80048; 36415; 84550; 86140; 73630; 96375; 96374; 99284; J1100; J7030